=== PATIENT | female | born 1995 | race Caucasian/White ===

== ENCOUNTER 2017-04-09 10:14 | Emergency (ER) | payer OTHER ==
[2017-04-09] MEDS: NORCO, ANEXSIA 5/325MG TABLET (HYDROcodone/ACETAMINOPHEN) PO (10:30)
== END 2017-04-09 12:11 | disposition home or self-care (01) ==
LOC: M ED 10:14
DX: S92.902A Unspecified fracture of left foot, initial encounter for closed fracture (principal); X50.0XXA Overexertion from strenuous movement or load, initial encounter; Y92.018 Other place in single-family (private) house as the place of occurrence of the external cause; E66.9 Obesity, unspecified; F17.210 Nicotine dependence, cigarettes, uncomplicated; F12.20 Cannabis dependence, uncomplicated
CPT/HCPCS: 73630

== ENCOUNTER → 2017-04-25 | Outpatient (CLI) | payer OTHER | LOC: M RAD 13:31 | DX: S92.315A Nondisplaced fracture of first metatarsal bone, left foot, initial encounter for closed fracture (principal); S92.325A Nondisplaced fracture of second metatarsal bone, left foot, initial encounter for closed fracture; X58.XXXA Exposure to other specified factors, initial encounter; Y92.89 Other specified places as the place of occurrence of the external cause; Y93.89 Activity, other specified; Y99.8 Other external cause status | CPT/HCPCS: 73700 ==

== ENCOUNTER 2017-05-08 12:40 | Day surgery (SDC) | payer OTHER ==
[2017-05-08] MEDS ORDERED: ROPIvacaine 0.5% 30 ML INJECTION (J2795 PER 1MG) (12:41)
[2017-05-08] MEDS ORDERED: dexameTHASONE 10 MG/1 ML VIAL PRES.FREE (J1100) (12:41)
[2017-05-08] MEDS ORDERED: LR 1,000 ML IV (13:00)
[2017-05-08] MEDS ORDERED: ROCURONIUM BROMIDE 50 MG/5 ML VIAL As Ordered ×2 (13:39→14:41)
[2017-05-08] MEDS ORDERED: ONDANSETRON 4MG/2ML VIAL (J2405) As Ordered ×3 (13:39→20:42)
[2017-05-08] MEDS ORDERED: LIDOCAINE 2% INJ 100 MG/5 ML SDV (FOR ANES.) As Ordered ×2 (13:39→14:18)
[2017-05-08] MEDS ORDERED: dexameTHASONE 4 MG/ML 1ML VIAL (J1100) As Ordered (13:39)
[2017-05-08] MEDS ORDERED: fentaNYL 250 MCG/5 ML INJECTION (J3010) As Ordered (13:39)
[2017-05-08] MEDS ORDERED: PROPOFOL 200 MG/20 ML VIAL As Ordered ×2 (13:39→14:18)
[2017-05-08] MEDS ORDERED: MIDAZOLAM INJ 2 MG/2 ML VIAL (J2250) As Ordered ×2 (13:40→14:56)
[2017-05-08] MEDS ORDERED: fentaNYL 100 MCG/2 ML INJECTION (J3010) As Ordered ×2 (14:18→14:56)
[2017-05-08 14:51] LABS: CONTROL LINE UCG INT CTR LINE PRESENT; URINE PREG TEST NEGATIVE (NEGATIVE)
[2017-05-08] MEDS: fentaNYL 100 MCG/2 ML INJECTION (J3010) IV (15:24)
[2017-05-08] MEDS: MIDAZOLAM INJ 2 MG/2 ML VIAL (J2250) IV (15:24)
[2017-05-08] MEDS: CEFAZOLIN SOD 1 GM in APPROPRIATE DILUENT 1 EA IV (17:09)
[2017-05-08] MEDS ORDERED: HYDROmorphone HCL 2 MG/ML 1ML VIAL (J1170) As Ordered (17:58)
[2017-05-08] MEDS ORDERED: LABETALOL HCL 100 MG/20 ML VIAL As Ordered (18:25)
[2017-05-08] MEDS ORDERED: DESFLURANE 240 ML INHALANT As Ordered (18:43)
[2017-05-08] MEDS ORDERED: hydrALAZINE INJ 20 MG/ML VIAL As Ordered (18:44)
[2017-05-08] MEDS ORDERED: KETOROLAC 60 MG/2 ML VIAL (J1885) As Ordered (19:33)
[2017-05-08] MEDS ORDERED: ceFAZolin 1GM INJ (J0690 PER 500MG) As Ordered (20:42)
[2017-05-08] MEDS: ONDANSETRON 4MG/2ML VIAL (J2405) IV (20:50)
[2017-05-08] MEDS ORDERED: PERCOCET 5MG/325MG TAB PO (21:15)
[2017-05-08] MEDS: LR 1,000 ML IV ×2 (21:15)
[2017-05-08] MEDS ORDERED: fentaNYL 100 MCG/2 ML INJECTION (J3010) IV (21:15)
[2017-05-08] MEDS ORDERED: FLEET ENEMA PR (21:30)
[2017-05-08] MEDS ORDERED: MORPHINE 2 MG/ML 1ML SYRINGE (J2270) IV (21:30)
[2017-05-08] MEDS ORDERED: oxyCODONE 5MG TAB PO (21:30)
[2017-05-08] MEDS: ACETAMINOPHEN 500 MG TAB PO (22:00)
[2017-05-08 22:53] LABS: BEDSIDE GLUCOSE 204 MG/DL (70-105)
[2017-05-09] MEDS: oxyCODONE 5MG TAB PO ×3 (00:08→09:36)
[2017-05-09] MEDS: MORPHINE 4 MG/ML 1ML VIAL (J2270) IV ×2 (01:50→05:31)
[2017-05-09] MEDS: ACETAMINOPHEN 500 MG TAB PO (05:24)
[2017-05-09] MEDS: LR 1,000 ML IV (07:15)
[2017-05-09] MEDS: ENOXAPARIN 40 MG/0.4 ML SYRINGE (J1650) SC (08:19)
== END 2017-05-09 11:25 | disposition home or self-care (01) ==
LOC: M SDC 12:40 → M PED 22:09
DX: S93.325A Dislocation of tarsometatarsal joint of left foot, initial encounter (principal); K21.9 Gastro-esophageal reflux disease without esophagitis; R06.83 Snoring; R29.898 Other symptoms and signs involving the musculoskeletal system; E66.9 Obesity, unspecified; Z68.41 Body mass index [BMI] 40.0-44.9, adult; Z72.0 Tobacco use; W19.XXXA Unspecified fall, initial encounter; Y93.89 Activity, other specified; Y92.89 Other specified places as the place of occurrence of the external cause; Y99.8 Other external cause status
CPT/HCPCS: 28615

== ENCOUNTER 2018-06-14 13:38 | Emergency (ER) | payer OTHER ==
[~2018-06-14] VITALS: Ht 167.6 cm; Wt 118.2 kg
[~2018-06-14 13:38] MED LIST: HYDR-3713 PO; OXYC-517 PO
[2018-06-14 16:15] LABS: INFLUENZA A AMPLIFICATION NEGATIVE (NEGATIVE); INFLUENZA B AMPLIFICATION NEGATIVE (NEGATIVE)
[2018-06-14 16:24] VITALS: BP 126/80
[2018-06-14] MEDS ORDERED: FLON1SPR NARES (16:44)
[2018-06-14] MEDS ORDERED: LIDO1SOL7 PO (16:44)
== END 2018-06-14 16:58 | disposition home or self-care (01) ==
LOC: M ED 13:38
DX: J02.8 Acute pharyngitis due to other specified organisms (principal); R51 Headache

== ENCOUNTER 2018-08-11 21:13 | Emergency (ER) | payer MEDICAID, OTHER, SELFPAY ==
[~2018-08-11] VITALS: Ht 167.6 cm; Wt 120.0 kg
[~2018-08-11 21:13] MED LIST changes: +FLON1SPR NARES; +LIDO1SOL8 PO
[2018-08-11] MEDS ORDERED: ACETAMINOPHEN TAB 650MG DOSE (2X325MG) PO ONE (22:30)
[2018-08-11 22:37] LABS: BASO # 0.1 10^3/uL (0.0-0.2); BASO % 0.6 % (0.0-1.0); EOS # 0.2 10^3/uL (0.0-0.50); EOS % 2.3 % (0.0-3.0); HEMOGLOBIN 14.3 g/dl (12.0-15.5); LYMPH # 2.7 10^3/uL (1.5-6.5); LYMPH % 30.4 % (24.0-44.0); MEAN CORPUSCULAR HEMOGLOBIN 28.6 pg (27.0-33.0); MEAN CORPUSCULAR HGB CONC 32.5 g/dl (32.0-36.5); MONO # 0.6 10^3/uL (0.0-0.8); MONO % 6.8 % (0.0-5.0); NEUTROPHILS # 5.4 10^3/uL (1.8-7.7); NEUTROPHILS % 59.6 % (36.0-66.0); PLATELET COUNT, AUTOMATED 362 10^3/uL (150-450)
--- NOTE | 2018-08-11 23:37 | REPVR ---
EXAM: US , Transvaginal EXAM DATE/TIME: 08/11/2018 10:33 PM CLINICAL HISTORY: 22 years old, female; complicated by abdominal or pelvic pain; Lower; First trimester; Gestational age or lmp: 06/06/18; ; Additional info: Vaginal bleeding TECHNIQUE: Imaging protocol: Real-time transvaginal obstetrical ultrasound of the maternal pelvis and a first trimester with image documentation. Transvaginal imaging was used for better evaluation of the fetus and adnexa. COMPARISON: No relevant prior studies available. FINDINGS: GESTATION: Gestation: Small gestational sac demonstrated within the uterine fundus with an average sac diameter of 6.1 mm. No pole demonstrated. No yolk sac demonstrated. Heart rate: No cardiac activity. BIOMETRY: Estimated gestational age: Gestational age based on sac size is 5 weeks 3 days. Gestational age based on LMP of 06/06/2018 is 9 weeks 3 days. MATERNAL: Uterus: Uterus measures 7.7 x 5.1 x 4.8 cm Right adnexa: Right ovary not visualized due to overlying bowel gas. Left adnexa: Left ovary measures 4.2 x 2.8 x 3.5 cm. Unilocular cyst in the left ovary measures 3 x 2.5 x 2.7 cm. No solid components. Intraperitoneal: Free fluid in the cul-de-sac demonstrated. IMPRESSION: Single sac in the uterus likely representing a gestational sac however in the absence of a pole, yolk sac or cardiac activity ectopic is not excluded at this time. Follow up ultrasound and beta hCG levels recommended to document the presence of a pole and cardiac activity in order to exclude ectopic or early failure. Electronically signed by: Atilio Reddy On 08/11/2018 23:37:08 PM
[2018-08-11 23:41] VITALS: BP 151/70
== END 2018-08-11 23:43 | disposition home or self-care (01) ==
LOC: M ED 21:13
DX: O20.0 Threatened abortion (principal); O99.331 Smoking (tobacco) complicating pregnancy, first trimester; F17.210 Nicotine dependence, cigarettes, uncomplicated; Z3A.01 Less than 8 weeks gestation of pregnancy

== ENCOUNTER → 2018-08-14 | Outpatient (CLI) | payer MEDICAID, SELFPAY | LOC: M LAB 11:55 | PROVIDERS: ATTEND Nurse Practitioner Family | DX: R71.8 Other abnormality of red blood cells (principal) ==

== ENCOUNTER → 2018-08-16 | Outpatient (CLI) | payer OTHER, SELFPAY ==
[2018-08-16 17:27] LABS: BASO # 0.1 10^3/uL (0.0-0.2); BASO % 0.7 % (0.0-1.0); EOS # 0.2 10^3/uL (0.0-0.50); EOS % 2.1 % (0.0-3.0); HEMATOCRIT 40.7 % (36.0-47.0); HEMOGLOBIN 13.3 g/dl (12.0-15.5); LYMPH # 2.1 10^3/uL (1.5-6.5); LYMPH % 25.4 % (24.0-44.0); MEAN CORPUSCULAR HEMOGLOBIN 29.2 pg (27.0-33.0); MEAN CORPUSCULAR HGB CONC 32.7 g/dl (32.0-36.5); MEAN CORPUSCULAR VOLUME 89.3 fl (80.0-96.0); MONO # 0.6 10^3/uL (0.0-0.8); MONO % 6.8 % (0.0-5.0); NEUTROPHILS # 5.3 10^3/uL (1.8-7.7); NEUTROPHILS % 64.6 % (36.0-66.0); PLATELET COUNT, AUTOMATED 307 10^3/uL (150-450); RED BLOOD COUNT 4.56 10^6/uL (4.00-5.40); WHITE BLOOD COUNT 8.2 10^3/uL (4.0-10.0)
[2018-08-16 20:45] LABS: CHLAMYDIA DNA AMPLIFICATION NEGATIVE (NEGATIVE); GC DNA AMPLIFICATION NEGATIVE (NEGATIVE)
[2018-08-17 10:50] LABS: HEPATITIS C VIRUS ABY INDEX 0.1 INDEX (<0.8); HIV 1&2 SCREEN CENTAUR NEGATIVE (NEGATIVE); RUBELLA IgG QUALITATIVE EQUIVOCAL (IMMUNE)
== END ==
LOC: M LAB 16:10
PROVIDERS: ATTEND Obstetrics & Gynecology
DX: Z34.00 Encounter for supervision of normal first pregnancy, unspecified trimester (principal); Z3A.01 Less than 8 weeks gestation of pregnancy; Z36.89 Encounter for other specified antenatal screening

== ENCOUNTER 2018-09-26 06:04 | Emergency (ER) | payer OTHER ==
[~2018-09-26] VITALS: Ht 167.6 cm; Wt 122.3 kg
[2018-09-26] MEDS ORDERED: PRENTAB53 PO (06:15)
[2018-09-26] MEDS ORDERED: KEFL500C17 PO (07:40)
[2018-09-26] MEDS ORDERED: CEPHALEXIN 500 MG CAP PO ONE (07:45)
[2018-09-26 08:45] VITALS: BP 113/60
== END 2018-09-26 08:47 | disposition home or self-care (01) ==
LOC: M ED 06:04
DX: O23.10 Infections of bladder in pregnancy, unspecified trimester (principal); Z3A.11 11 weeks gestation of pregnancy; O99.331 Smoking (tobacco) complicating pregnancy, first trimester; F17.210 Nicotine dependence, cigarettes, uncomplicated; Z87.440 Personal history of urinary (tract) infections; Z87.42 Personal history of other diseases of the female genital tract

== ENCOUNTER → 2018-11-01 | Outpatient (CLI) | payer OTHER ==
[~2018-11-01] MED LIST changes: +KEFL500C17 PO; +PRENTAB53 PO
== END ==
LOC: M WUC 17:09
PROVIDERS: ATTEND Advanced Practice Midwife
DX: Z36.89 Encounter for other specified antenatal screening (principal)

== ENCOUNTER → 2018-11-15 | Outpatient (CLI) | payer OTHER ==
[~2018-11-15] MED LIST changes: +AMOX875T PO; +COMPPAK; +HM S0.65 NARES
--- NOTE | 2018-11-15 15:38 | REP ---
Obstetric sonography: History: Supervision of , for anatomy. Findings: Scanning through the gravid uterus demonstrates a viable single intrauterine gestation in a cephalic lie. motion is observed and heart rate is recorded at 147 beats per minute. A posterior grade 0 placenta is seen without evidence of previa. Amniotic fluid is subjectively normal. Closed cervical length is measured at 3.5 cm, viewed transabdominally. No extrauterine abnormalities observed. There has been appropriate interval growth. No abnormality is seen. The following anatomic structures are less than optimally seen due to position: Cerebellum and posterior fossa, face and profile, four-chamber heart, spine. The following anatomic structures are identified and felt to be unremarkable: cranium, choroid plexus, cavum, lungs, left and right ventricular outflow tract views, diaphragm, left-sided stomach, abdominal wall cord insertion, three-vessel cord, kidneys and bladder, upper and lower extremities. Biometry chart: BPD 4.5 cm = 19 weeks 4 days HC 16.4 cm = 19 weeks 1 day AC 13.9 cm = 19 weeks 2 days FL 3.0 cm = 19 weeks 1 day HL 2.9 cm = 19 weeks 4 days HC/AC ratio normal 1.18. Cephalic index normal 0.77. Estimated weight 282 grams, 0 pounds 9 ounces, 56th percentile for 19 weeks 0 days. Impression: Viable single intrauterine gestation at 19 weeks days by today's composite sonographic criteria. MARIANN by today's sonography April 08, 2019. anatomic survey less than complete regarding cerebellum, face and profile, and four-chamber heart and spine views. Electronically Signed by Fady Grissom MD 11/15/2018 04:51 P
== END ==
LOC: M RAD 11:36
PROVIDERS: ATTEND Advanced Practice Midwife
DX: O99.212 Obesity complicating pregnancy, second trimester (principal); Z3A.19 19 weeks gestation of pregnancy

== ENCOUNTER 2018-11-26 11:48 | Emergency (ER) | payer OTHER ==
[~2018-11-26] VITALS: Ht 167.6 cm; Wt 126.9 kg
[~2018-11-26 11:48] MED LIST changes: -AMOX875T PO; -COMPPAK; -HM S0.65 NARES
[2018-11-26 11:49] VITALS: BP 158/85
[2018-11-26] MEDS ORDERED: COMPPAK (11:56)
[2018-11-26] MEDS ORDERED: AMOX875T PO (13:04)
[2018-11-26] MEDS ORDERED: HM S0.65 NARES (13:04)
== END 2018-11-26 13:13 | disposition home or self-care (01) ==
LOC: M ED 11:48
DX: J31.0 Chronic rhinitis (principal)

== ENCOUNTER → 2018-12-12 | Outpatient (CLI) | payer OTHER ==
[~2018-12-12] MED LIST changes: +AMOX875T PO; +COMPPAK; +HM S0.65 NARES
--- NOTE | 2018-12-13 03:00 | REP ---
Clinical: Anatomical evaluation. Comparison: 11/15/2018 . Findings: Examination demonstrates a single live intrauterine in cephalic presentation. motion is identified by technologist. Placenta is noted posterior and grade zero without evidence for placenta previa or abruption. Amniotic fluid volume is normal. Cervix measures 3.5 cm in length and appears closed. No evidence for nuchal cord. Gestational age by LMP 22 weeks 6 days with MARIANN 04/11/2019 . Gestational age by current measurements 22 weeks 3 days with MARIANN 04/14/2019 . FHR equals 147 beats per minute. Estimated weight 525 grams ( 39th percentile). Anatomical assessment demonstrates normal structures including cranium, choroid plexus, cavum, cerebellum/posterior fossa, facial features, lungs, four-chamber heart/right ventricular outflow tract, diaphragm, stomach, cord insertion/three-vessel cord, kidneys/bladder, and spine. Impression: Single live intrauterine in cephalic presentation demonstrating appropriate interval growth. In conjunction with prior examination anatomical assessment is complete and normal. Electronically Signed by Gabriel Burch MD 12/13/2018 02:51 A
== END ==
LOC: M RAD 11:38
PROVIDERS: ATTEND Advanced Practice Midwife
DX: O99.212 Obesity complicating pregnancy, second trimester (principal); E66.9 Obesity, unspecified; Z3A.22 22 weeks gestation of pregnancy

== ENCOUNTER → 2019-01-15 | Outpatient (CLI) | payer OTHER ==
[2019-01-15 15:56] LABS: BASO # 0.1 10^3/uL (0.0-0.2); BASO % 0.5 % (0.0-1.0); EOS # 0.2 10^3/uL (0.0-0.5); EOS % 1.7 % (0.0-3.0); HEMOGLOBIN 11.6 g/dl (12.0-15.5); LYMPH # 1.5 10^3/uL (1.5-5.0); LYMPH % 13.9 % (24.0-44.0); MEAN CORPUSCULAR HEMOGLOBIN 29.7 pg (27.0-33.0); MEAN CORPUSCULAR HGB CONC 33.1 g/dl (32.0-36.5); MEAN CORPUSCULAR VOLUME 89.5 fl (80.0-96.0); MONO # 0.6 10^3/uL (0.0-0.8); MONO % 5.5 % (0.0-5.0); NEUTROPHILS # 8.3 10^3/uL (1.5-8.5); NEUTROPHILS % 77.9 % (36.0-66.0); PLATELET COUNT, AUTOMATED 313 10^3/uL (150-450); RED BLOOD COUNT 3.91 10^6/uL (4.00-5.40); WHITE BLOOD COUNT 10.6 10^3/uL (4.0-10.0)
== END ==
LOC: M LAB 14:18
PROVIDERS: ATTEND Advanced Practice Midwife
DX: O99.212 Obesity complicating pregnancy, second trimester (principal); Z3A.00 Weeks of gestation of pregnancy not specified

== ENCOUNTER 2019-03-20 21:01 | Outpatient (CLI) | payer OTHER ==
[~2019-03-20] VITALS: Ht 167.6 cm; Wt 136.5 kg
[2019-03-20 21:25] VITALS: BP 127/71
== END 2019-03-20 23:10 | disposition home or self-care (01) ==
LOC: M LDO 21:01
PROVIDERS: ATTEND Obstetrics & Gynecology
DX: O99.89 Other specified diseases and conditions complicating pregnancy, childbirth and the puerperium (principal); Z3A.37 37 weeks gestation of pregnancy; W19.XXXA Unspecified fall, initial encounter

== ENCOUNTER → 2019-03-25 | Outpatient (REF) | payer OTHER | LOC: M SFHCWAGY 17:20 | PROVIDERS: ATTEND Obstetrics & Gynecology | DX: Z36.85 Encounter for antenatal screening for Streptococcus B (principal) ==

== ENCOUNTER 2019-03-28 18:33 | Inpatient (IN) | payer OTHER ==
[~2019-03-28] VITALS: Ht 167.6 cm; Wt 138.6 kg
[2019-03-28] VITALS (8 sets, daily range): BP systolic 115–132; BP diastolic 55–92
[2019-03-28] MEDS ORDERED: LR 1,000 ML IV SCH (19:41)
[2019-03-28] MEDS ORDERED: OXYTOCIN DRIP 30 UNITS in IV 1 EA IV SCH (19:45)
--- NOTE | 2019-03-28 21:26 | HPE ---
DATE OF ADMISSION: 03/28/2019 HISTORY: A 23-year-old 1, para 0 female at 38-0/7 weeks gestation by 9-week ultrasound, estimated date of confinement (EDC) 04/11/2019, presents with gush of fluid per vagina at 5:45 p.m. on the day of admission. She continued to leak. She denies contractions. There is good movement. There is no bleeding. COURSE: The patient initiated care at 6 weeks gestation on 08/16/2018. Her first trimester blood pressure was 122/76. She had no complications. Weight at the end of the was approximately 300 pounds. MEDICAL HISTORY: Mild asthma. SURGICAL HISTORY: May 2018 - foot surgery. ALLERGIES: None. SOCIAL HISTORY: The father of the baby is involved. The patient lives in [place]. She smokes 6-7 cigarettes per day. Denies alcohol or drug use. FAMILY HISTORY: Noncontributory. PHYSICAL EXAMINATION: Blood pressure 115/55, pulse 112, afebrile, no apparent distress. Head and Neck Exam: Normal. Lungs: Clear. Heart: Regular rate and rhythm. Abdomen: Nontender, gravid. heart tones: Category 1. Contractions: Irregular. Sterile Speculum Exam: Grossly ruptured, clear fluid. Positive fern, positive Nitrazine, positive pool. Fluid is clear. Sterile Vaginal Exam: 2 cm, 70%, -2, posterior, soft, vertex. Extremities: Nontender. LABORATORY: Blood type A positive, Rubella equivocal, diabetes 127, GBS negative. ASSESSMENT: A 23-year-old 1 at 38-0/7 weeks gestation with spontaneous rupture of membranes at 38 weeks. PLAN: The patient is admitted on 03/28/2019. Patient may require Pitocin augmentation.
[2019-03-28 21:57] LABS: HEMOGLOBIN 12.2 g/dl (12.0-15.5); MEAN CORPUSCULAR HEMOGLOBIN 27.4 pg (27.0-33.0); MEAN CORPUSCULAR HGB CONC 31.3 g/dl (32.0-36.5); MEAN CORPUSCULAR VOLUME 87.6 fl (80.0-96.0); PLATELET COUNT, AUTOMATED 332 10^3/uL (150-450); RED BLOOD COUNT 4.45 10^6/uL (4.00-5.40); WHITE BLOOD COUNT 10.6 10^3/uL (4.0-10.0)
[2019-03-29] VITALS (38 sets, daily range): BP systolic 105–176; BP diastolic 51–102
[2019-03-29] MEDS ORDERED: PROMETHAZINE INJ 25 MG/ML VIAL (J2550) IV ONE (04:45)
[2019-03-29] MEDS ORDERED: BUTORPHANOL 2 MG/ML INJ (J0595) IV ONE (04:45)
[2019-03-29] MEDS ORDERED: FENTANYL 2MCG/ML ROPIVACAINE 0.2% IN 0.9% NACL 100ML IVBAG As Ordered ONE (07:37)
[2019-03-29] MEDS: PRENATAL VITAMINS CHEWABLE TABLET PO SCH (09:00)
[2019-03-29] MEDS ORDERED: ePHEDrine SULFATE 25 MG/5 ML(5MG/ML) SYRINGE IV PRN (09:30)
[2019-03-29] MEDS ORDERED: FENTANYL/ROPIVACAINE/NACL BAG 100 ML EPIDURAL SCH (09:30)
[2019-03-29] MEDS ORDERED: NALOXONE INJ 0.4 MG/1 ML VIAL (J2310) IV PRN (09:30)
[2019-03-29] MEDS ORDERED: diphenhydrAMINE INJ 50MG/ML VIAL (J1200) IV PRN (09:30)
[2019-03-29] MEDS ORDERED: ONDANSETRON 4MG/2ML VIAL (J2405) IV PRN ×2 (09:30→11:30)
[2019-03-29] MEDS ORDERED: LACTATED RINGER'S 1000 ML IV PRN (09:30)
[2019-03-29] MEDS ORDERED: EPIDURAL COMMENT XX SCH (09:30)
[2019-03-29] MEDS ORDERED: EPIDURAL/PCA KEYS XX PRN (09:30)
[2019-03-29] MEDS ORDERED: REFRIGERATOR IV KEYS XX PRN (09:30)
[2019-03-29] MEDS ORDERED: LIDOCAINE 1% MDV 20ML VIAL As Ordered ONE ×2 (10:50→10:52)
[2019-03-29] MEDS ORDERED: OXYTOCIN DRIP 30 UNITS in IV 1 EA IV SCH (11:16)
[2019-03-29] MEDS ORDERED: MEASLES,MUMPS,RUBELLA VACCINE INJ (MMR-II) (90707) SC SCH (11:30)
[2019-03-29] MEDS ORDERED: ACETAMINOPHEN 500 MG TAB PO PRN (11:30)
[2019-03-29] MEDS ORDERED: DOCUSATE SODIUM 100 MG CAP PO PRN (11:30)
[2019-03-29] MEDS ORDERED: RHOGAM 300 MCG (1500 IU) INJ (J2790) IM SCH (11:30)
[2019-03-29] MEDS ORDERED: IBUPROFEN 600 MG TAB PO PRN (11:30)
[2019-03-29] MEDS ORDERED: ACETAMINOPHEN TAB 650MG DOSE (2X325MG) PO PRN (11:30)
[2019-03-29] MEDS ORDERED: METHYLERGONOVINE MALEATE 0.2 MG TAB PO PRN (11:30)
[2019-03-29] MEDS ORDERED: DIBUCAINE 1% OINTMENT 30GM TOP PRN (11:30)
--- NOTE | 2019-03-29 13:44 | DN ---
DATE: 03/29/2019 PREDELIVERY DIAGNOSIS: 38 weeks, spontaneous rupture of membranes, labor. POSTDELIVERY DIAGNOSIS: Delivered. PROCEDURE: Spontaneous vaginal delivery. MANAGER APPOINTMENT: Dr. Mikie Carmona EXTRUSION SUPERVISOR: Madhu Chris DO ANESTHESIA: Epidural. ESTIMATED BLOOD LOSS: 300 mL. FINDINGS: 6 pound 7 ounce female infant, Apgars 8 and 9. DELIVERY SUMMARY: After an approximately 30 minute second stage, the patient had spontaneous delivery of a 6 pound 7 ounce female infant, Apgars 8 and 9, under epidural anesthesia. Nuchal cord times one was reduced manually. The shoulders delivered with ease. The infant was handed to the mother and cried immediately. The cord was doubly clamped and cut. The placenta delivered spontaneously and appeared to be intact. The patient received IV Pitocin immediately after delivery of the placenta. A first degree right sided perineal laceration was repaired with #2-0 chromic in the usual fashion. A periclitoral first degree laceration was repaired under local anesthesia with #3-0 chromic in the usual fashion. Sponge and needle counts were correct.
[2019-03-29] MEDS: IBUPROFEN 800 MG TAB PO PRN (18:13)
[2019-03-30] MEDS: IBUPROFEN 800 MG TAB PO PRN (04:48)
[2019-03-30 06:00] VITALS: BP 122/77
--- NOTE | 2019-03-30 07:23 | IPNPDOC ---
Text Note Date of Service The patient was seen on 03/30/19. NOTE PP #1 Feels well. Adequate pain management. Voiding VSS, afebrile,normotensive Breasts soft, nipples intact Fundus firm, NT, down 1 FB Lochia rubra light without odor PP #1 Routine care, anticipate D/C tomorrow VS,Fishbone, I+O VS, Fishbone, I+O Vital Signs Date Time Temp Pulse Resp B/P (MAP) Pulse Ox O2 Delivery O2 Flow Rate FiO2 03/30/19 06:00 98.8 85 16 122/77 (92) 97 Room Air I&O- Last 24 Hours up to 6 AM 03/30/19 06:00 Output Total 200 ml Balance -200 ml Kerrie Barney CNM Mar 30, 2019 07:23
[2019-03-30] MEDS ORDERED: ADACEL/BOOSTRIX VACCINE (DIPHTH/PERTUSS/ACELL/TETANUS)0.5ML SYR (90715) IM ONE (09:00)
[2019-03-30] MEDS ORDERED: INFLUENZA QUADRIVALENT PF VACCINE 0.5ML SYRINGE (90686) IM ONE (09:00)
[2019-03-30] MEDS: PRENATAL VITAMINS CHEWABLE TABLET PO SCH (10:00)
[2019-03-30 18:00] VITALS: BP 124/76
[2019-03-31] MEDS: IBUPROFEN 800 MG TAB PO PRN (02:16)
[2019-03-31 06:00] VITALS: BP 125/80
[2019-03-31] MEDS: PRENATAL VITAMINS CHEWABLE TABLET PO SCH (08:50)
== END 2019-03-31 10:45 | disposition home or self-care (01) | DRG 560 ==
LOC: M LDO 18:33 → M LDI 19:38 → M OBS 03-29 13:54
PROVIDERS: ADMIT Specialist; ATTEND Specialist
PROC: 10E0XZZ Delivery of Products of Conception, External Approach (ICD-10-PCS; principal; 2019-03-29)
PROC: 0HQ9XZZ Repair Perineum Skin, External Approach (ICD-10-PCS; 2019-03-29)
DX: O99.334 Smoking (tobacco) complicating childbirth (principal); F17.210 Nicotine dependence, cigarettes, uncomplicated; Z3A.38 38 weeks gestation of pregnancy; Z37.0 Single live birth; O69.81X0 Labor and delivery complicated by cord around neck, without compression, not applicable or unspecified; O70.0 First degree perineal laceration during delivery

== ENCOUNTER → 2019-11-12 | Outpatient (REF) | payer OTHER ==
[~2019-11-12] MED LIST changes: -LIDO1SOL8 PO; +LIDO2SOL17 PO
[2019-12-13 14:26] LABS: CHLAMYDIA DNA AMPLIFICATION NEGATIVE (NEGATIVE); GC DNA AMPLIFICATION NEGATIVE (NEGATIVE)
[2019-12-30 21:57] LABS: HEMATOCRIT 36.5 % (36.0-47.0); HEMOGLOBIN 12.1 g/dl (12.0-15.5); MEAN CORPUSCULAR HEMOGLOBIN 29.5 pg (27.0-33.0); MEAN CORPUSCULAR HGB CONC 33.2 g/dl (32.0-36.5); PLATELET COUNT, AUTOMATED 290 10^3/uL (150-450); WHITE BLOOD COUNT 8.8 10^3/uL (4.0-10.0)
[2020-01-06 03:47] LABS: HEPATITIS C VIRUS ABY INDEX 0.3 INDEX (<0.8); HIV 1&2 SCREEN CENTAUR NEGATIVE (NEGATIVE)
== END ==
LOC: M SFHCWAGY 13:14
PROVIDERS: ATTEND Advanced Practice Midwife
DX: Z34.82 Encounter for supervision of other normal pregnancy, second trimester (principal)

== ENCOUNTER → 2019-11-18 | Outpatient (CLI) | payer OTHER ==
--- NOTE | 2019-12-20 13:17 | REP ---
OBSTETRICAL ULTRASOUND: HISTORY: Anatomical evaluation. TECHNIQUE: Transabdominal obstetrical ultrasound with color Doppler evaluation. FINDINGS: Ultrasound examination demonstrates a single live intrauterine in variable presentation. heart rate equals 150 beats per minute. Placenta noted posteriorly, grade 0 and without placenta previa or abruption. The cervix measures 3.3 cm in length and appears closed. BIOMETRY CHART: BPD 42 mm 19 weeks 0 days Head circumference 157 mm 18 weeks 5 days Abdominal circumference 130 mm 18 weeks 5 days Femur length 28 mm 18 weeks 5 days Humeral length 27 mm 18 weeks 5 days Gestational age by current measurements is 18 weeks 6 days. Estimated weight is 251 grams (42nd percentile). Anatomical assessment demonstrates normal cisterna magna, cavum/septum, thalamus, spine, stomach, kidneys/bladder, three vessel cord/cord insertion, extremities and facial features. Limited evaluation of the heart and ventricular outflow tracts noted. IMPRESSION: 1. Single live intrauterine in variable presentation demonstrating appropriate estimated weight. 2. Limited evaluation of the heart/ventricular outflow tracts may warrant re- evaluation and follow up. MTDD
== END ==
LOC: M WHC 09:53
PROVIDERS: ATTEND Advanced Practice Midwife
DX: Z34.92 Encounter for supervision of normal pregnancy, unspecified, second trimester (principal)

== ENCOUNTER → 2020-01-21 | Outpatient (CLI) | payer OTHER ==
[2020-01-21 15:24] LABS: HEMATOCRIT 38.1 % (36.0-47.0); HEMOGLOBIN 12.1 g/dl (12.0-15.5); MEAN CORPUSCULAR HEMOGLOBIN 28.5 pg (27.0-33.0); MEAN CORPUSCULAR HGB CONC 31.8 g/dl (32.0-36.5); MEAN CORPUSCULAR VOLUME 89.9 fl (80.0-96.0); PLATELET COUNT, AUTOMATED 333 10^3/uL (150-450); RED BLOOD COUNT 4.24 10^6/uL (4.00-5.40); WHITE BLOOD COUNT 9.7 10^3/uL (4.0-10.0)
== END ==
LOC: M PLALAB 11:47
PROVIDERS: ATTEND Advanced Practice Midwife
DX: Z34.82 Encounter for supervision of other normal pregnancy, second trimester (principal)

== ENCOUNTER → 2020-01-23 | Outpatient (CLI) | payer OTHER ==
--- NOTE | 2020-01-23 15:14 | REP ---
INDICATION: F/U ANATOMY. COMPARISON: Comparison study November 18, 2019. TECHNIQUE: Transabdominal scanning. FINDINGS: Scanning through the gravid uterus demonstrates a viable single intrauterine gestation in breech lie. motion is observed and heart rate is recorded at 146 beats per minute. A posterior fundal placenta is seen, grade 1, without evidence of placenta previa. Amniotic fluid is subjectively normal. Closed cervical length is measured at 4.5 cm transabdominally. No extrauterine abnormality is observed. The following anatomic structures are identified today and felt to be unremarkable: Four-chamber heart with left and right ventricular outflow tract views. In conjunction with the prior study, anatomic survey is felt to be complete.. Biometry chart: BPD 7.1 cm, 28 weeks 2 days Head circumference 26.1 cm 28 weeks 3 days Abdominal circumference 24.1 cm, 28 weeks 2 days Femur length 5.4 cm, 28 weeks 3 days Humeral length 4.8 cm, 28 weeks 3 days HC/AC ratio normal 1.09 Cephalic index normal 0.75 Estimated weight 1214 g, 2 lb 10 oz, 35th percentile for 28 weeks 3 days IMPRESSION: Viable single intrauterine gestation at 28 weeks 3 days by today's composite sonographic criteria. MARIANN by today's sonography April 13, 2020. No complication identified. <Electronically signed by Jeremi Grissom > 01/23/20 1597
== END ==
LOC: M WHC 12:26
PROVIDERS: ATTEND Advanced Practice Midwife
DX: Z34.82 Encounter for supervision of other normal pregnancy, second trimester (principal); Z3A.28 28 weeks gestation of pregnancy

== ENCOUNTER 2020-02-20 15:40 | Outpatient (CLI) | payer OTHER ==
[~2020-02-20] VITALS: Ht 167.6 cm; Wt 130.5 kg
[2020-02-20 16:05] VITALS: BP 122/79
[2020-02-20] MEDS ORDERED: ACET-897 PO (16:25)
[2020-02-20 17:05] VITALS: BP 130/71
[2020-02-20] MEDS ORDERED: CYCL-707 PO (18:29)
[2020-02-20] MEDS ORDERED: CYCLOBENZAPRINE 10MG TABLET PO ONE (19:00)
== END 2020-02-20 17:45 | disposition home or self-care (01) ==
LOC: M LDO 15:40
PROVIDERS: ATTEND Obstetrics & Gynecology
DX: O26.893 Other specified pregnancy related conditions, third trimester (principal); M54.5 Low back pain; Z3A.32 32 weeks gestation of pregnancy

== ENCOUNTER → 2020-03-17 | Outpatient (REF) | payer OTHER ==
[~2020-03-17] MED LIST changes: +ACET-897 PO; +CYCL-707 PO
== END ==
LOC: M PLALAB 10:25
PROVIDERS: ATTEND Obstetrics & Gynecology
DX: Z3A.35 35 weeks gestation of pregnancy (principal)

== ENCOUNTER 2020-04-11 07:14 | Inpatient (IN) | payer OTHER ==
[2020-04-11] VITALS (34 sets, daily range): BP systolic 104–157; BP diastolic 54–100
[~2020-04-11] VITALS: Ht 167.6 cm; Wt 143.5 kg
--- OUTSIDE RECORDS SUMMARY | 2020-04-11 07:18 | CCD ---
Author Author [facility] Organization [facility] Address Unknown Phone Unavailable Care Team Providers Care Rn Ccu Name Role Phone Jami Rios Unavailable PROBLEMS Type Condition ICD9-CM Code [id number] Code Onset Dates Condition S tatus SNOMED Code Notes Problem Contraception management V25.9 Active 3347505 00 Problem Morbid obesity with BMI of 45.0-49.9, adult 278.01 Active 931226913 Problem Obesity complicating in third trimester O99.21 3 Active Problem Morbid (severe) obesity due to excess calories E66 .01 Active 310474166 Problem Irregular menses 626.4 Active 518859120 Problem Contraceptive education V25.09 Active 15204354 0 Problem Dysmenorrhea 625.3 Active 518329249 Problem Supervision of other normal Z34.80 Ac tive 542942299 ALLERGIES Allergen (clinical drug ingredient) Drug/Non Drug Allergy do cumented on EMR Reaction Allergy Type Onset Date Status Seasonal Unknown Non Drug Allergy Active ENCOUNTERS from 1994 to 2020-02-25 Encounter Location Date Provider Diagnosis [facility] [address] [place] [address] Jan, Jami Rios Obesity complicating in third trimester O99.213 ; Morbid (severe) obesity due to excess calories E66.01 ; 28 weeks gestation of Z3A.28 and Encounter for immunization Z23 IMMUNIZATIONS Vaccine Route Administration Date Status TDAP 0.5mL (Boostrix) IM Intramuscular Jan 28, 2020 Administe red SOCIAL HISTORY Tobacco Use: Social History Observation Description Date Details (start date - stop date) Current Smoker Sex Assigned At : Social History Observation Description Sex Assigned At Female Tobacco Use: Question Answer Notes Are you a: current smoker REASON FOR REFERRAL No Information VITAL SIGNS Weight 280.8 lbs Jan, Weight-kg 127.37 kg Jan, Height 66 in Jan, BMI 45.322 kg/m2 Jan, Blood pressure systolic 120 mm Hg Jan, Blood pressure diastolic 72 mm Hg Jan, MEDICATIONS Medication SIG (Take, Route, Frequency, Duration) Notes Start Da te End Date Status 27-1 MG 1 tablet Orally Once a day Active Flexeril Active PROCEDURES Procedure Date Ordered Result Body Site Immunization: Boostrix 0.5mL IM (TDAP) 2020-01-28 N/A RESULTS No Results REASON FOR VISIT 4WK PN MEDICAL (GENERAL) HISTORY Type Description Date Medical History environmental allergies Medical History morbid obesity Medical History GERD Medical History Rheumatoid arthritis Surgical History T & A 06/2003 Surgical History foot surgery Hospitalization History Childbirth 03/29/2019 Goals Section No Information Health Concerns No Information MEDICAL EQUIPMENT No Information MENTAL STATUS No Information FUNCTIONAL STATUS No Information ASSESSMENTS Encounter Date Diagnosis Assessment Notes Treatment Notes Treatm ent Clinical Notes Jan, Obesity complicating pregnan cy in third trimester (ICD-10 - O99.213) Jan, Morbid (severe) obesity due to excess calories ( ICD-10 - E66.01) Jan, 28 weeks gestation of (ICD-10 - Z3A.28 ) Jan, Encounter for immunization (ICD-10 - Z23) PLAN OF TREATMENT Next Appt Details 4 Weeks Reason:pn Provider Name:Jami Rios, 2020-02 10:40:00 AM, [address] [place], [address], Follow Up:4 Weekspn Insurance Providers Payer Name Payer Address Payer Phone Insured Name Patient Relati onship to Insured Coverage Start Date Coverage End Date [employer] [facility] [place] [address] [facility] [phone] MAGD[place]ENA TOBIN self
--- OUTSIDE RECORDS SUMMARY | 2020-04-11 07:18 | CCD ---
Author Author [facility] Organization [facility] Address Unknown Phone Unavailable Care Team Providers Care Inspector Experimental Assembly Name Role Phone Jami Rios Unavailable PROBLEMS Type Condition ICD9-CM Code [id number] Code Onset Dates Condition S tatus SNOMED Code Notes Problem Contraception management V25.9 Active 6979807 00 Problem Morbid obesity with BMI of 45.0-49.9, adult 278.01 Active 945582409 Problem Irregular menses 626.4 Active 027271438 Problem Morbid (severe) obesity due to excess calories E66 .01 Active 487650115 Problem Pre-existing diabetes mellit us 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, antepartum O24.312 Active Problem Contraceptive education V25.09 Active 05951293 0 Problem Dysmenorrhea 625.3 Active 054321546 Problem Supervision of other normal Z34.80 Ac tive 624186024 Problem Obesity complicating in third trimester O99.21 3 Active ALLERGIES Allergen (clinical drug ingredient) Drug/Non Drug Allergy do cumented on EMR Reaction Allergy Type Onset Date Status Seasonal Unknown Non Drug Allergy Active ENCOUNTERS from 1994 to 2020-03-18 Encounter Location Date Provider Diagnosis [facility] [address] [place] [address] Feb, Jami Rios Obesity complicating in third trimester O99.213 and 35 weeks gestation of Z3A.35 IMMUNIZATIONS Vaccine Route Administration Date Status TDAP 0.5mL (Boostrix) IM Intramuscular Jan 28, 2020 Administe red SOCIAL HISTORY Tobacco Use: Social History Observation Description Date Details (start date - stop date) Current Smoker Sex Assigned At : Social History Observation Description Sex Assigned At Female Tobacco Use: Question Answer Notes Are you a: current smoker REASON FOR REFERRAL No Information VITAL SIGNS Weight 299.8 lbs Feb, Height 66 in Feb, BMI 48.389 kg/m2 Feb, Blood pressure systolic 128 mm Hg Feb, Blood pressure diastolic 80 mm Hg Feb, MEDICATIONS Medication SIG (Take, Route, Frequency, Duration) Notes Start Da te End Date Status 27-1 MG 1 tablet Orally Once a day Active Flexeril Not-Taking PROCEDURES No Information RESULTS No Results REASON FOR VISIT 1WK PN MEDICAL (GENERAL) HISTORY Type Description Date [...] Notes Treatment Notes Treatm ent Clinical Notes Feb, Obesity complicating pregnan cy in third trimester (ICD-10 - O99.213) Feb, 35 weeks gestation of (ICD-10 - Z3A.35 ) PLAN OF TREATMENT Treatment Notes Test Name Order Date GROUP B STREP CULTURE 2020-03-18 Next Appt Details 2 Weeks Reason:PN Provider Name:Jami Rios, 2020-03 10:20:00 AM, [address] [place], [address], Follow Up:2 WeeksPN Insurance Providers Payer Name Payer Address Payer Phone Insured Name Patient Relati onship to Insured Coverage Start Date Coverage End Date [facility] COMMUNITY PLAN [facility] [address] [facility] [phone] MAGDALENA TOBIN self
--- OUTSIDE RECORDS SUMMARY | 2020-04-11 07:18 | CCD ---
Author Author [facility] Organization [facility] Address Unknown Phone Unavailable Care Team Providers Care Balance Staff Inspector Name Role Phone Jami Rios Unavailable PROBLEMS Type Condition ICD9-CM Code [id number] Code Onset Dates Condition S tatus SNOMED Code Notes Problem Contraception management V25.9 Active 3978425 00 Problem Morbid obesity with BMI of 45.0-49.9, adult 278.01 Active 920132910 Problem Irregular menses 626.4 Active 143206323 Problem Morbid (severe) obesity due to excess calories E66 .01 Active 306522163 Problem Pre-existing diabetes mellit us 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, antepartum O24.312 Active Problem Contraceptive education V25.09 Active 76384758 0 Problem Dysmenorrhea 625.3 Active 667347646 Problem Supervision of other normal Z34.80 Ac tive 941459427 Problem Obesity complicating in third trimester O99.21 3 Active ALLERGIES Allergen (clinical drug ingredient) Drug/Non Drug Allergy do cumented on EMR Reaction Allergy Type Onset Date Status Seasonal Unknown Non Drug Allergy Active ENCOUNTERS from 1994 to 2020-03-17 Encounter Location Date Provider Diagnosis [facility] [address] [place] [address] Feb, Jami Rios Obesity complicating in third trimester O99.213 ; Morbid (severe) obesity due to excess calories E66.01 and 34 weeks gestation of Z3A.34 IMMUNIZATIONS Vaccine Route Administration Date Status TDAP 0.5mL (Boostrix) IM Intramuscular Jan 28, 2020 Administe red SOCIAL HISTORY Tobacco Use: Social History Observation Description Date Details (start date - stop date) Current Smoker Sex Assigned At : Social History Observation Description Sex Assigned At Female Tobacco Use: Question Answer Notes Are you a: current smoker REASON FOR REFERRAL No Information VITAL SIGNS Weight 295.2 lbs Feb, Height 66 in Feb, BMI 47.647 kg/m2 Feb, Blood pressure systolic 128 mm Hg Feb, Blood pressure diastolic 78 mm Hg Feb, MEDICATIONS Medication SIG (Take, Route, Frequency, Duration) Notes Start Da te End Date Status 27-1 MG 1 tablet Orally Once a day Active Flexeril Not-Taking PROCEDURES No Information RESULTS No Results REASON FOR VISIT 4WK [...] in third trimester (ICD-10 - O99.213) Feb, Morbid (severe) obesity due to excess calories ( ICD-10 - E66.01) Feb, 34 weeks gestation of (ICD-10 - Z3A.34 ) PLAN OF TREATMENT Next Appt Details 1 Week Reason:PN Provider Name:Jami Rios, 2020-03 10:20:00 AM, [address] [place], [address], Follow Up:1 WeekPN Insurance Providers Payer Name Payer Address Payer Phone Insured Name Patient Relati onship to Insured Coverage Start Date Coverage End Date [facility] COMM[facility]AN [facility] [address] [facility] [phone] MAGDALENA TOBIN self
--- OUTSIDE RECORDS SUMMARY | 2020-04-11 07:18 | CCD ---
Author Author [facility] Organization [facility] Address Unknown Phone Unavailable Care Team Providers Care Dictating Machine Transcriber Name Role Phone YenichazKerrie Unavailable PROBLEMS Type Condition ICD9-CM Code [id number] Code Onset Dates Condition S tatus SNOMED Code Notes Problem Contraception management V25.9 Active 6970113 00 Problem Morbid obesity with BMI of 45.0-49.9, adult 278.01 Active 164739182 Problem Irregular menses 626.4 Active 223793102 Problem Morbid (severe) obesity due to excess calories E66 .01 Active 706944458 Problem Pre-existing diabetes mellit us 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, antepartum O24.312 Active Problem Contraceptive education V25.09 Active 59371871 0 Problem Dysmenorrhea 625.3 Active 743931406 Problem Supervision of other normal Z34.80 Ac tive 809517326 Problem Obesity complicating in third trimester O99.21 3 Active ALLERGIES Allergen (clinical drug ingredient) Drug/Non Drug Allergy do cumented on EMR Reaction Allergy Type Onset Date Status Seasonal Unknown Non Drug Allergy Active ENCOUNTERS from 1994 to 2020-04-04 Encounter Location Date Provider Diagnosis [facility] [address] [place] [address] Mar, Kerrie Barney Decreased m ovement during in third trimester, antepartum O36.8130 ; 37 weeks gestation of Z3A.37 and Obesity complicating in third trimester O99.213 IMMUNIZATIONS Vaccine Route Administration Date Status TDAP 0.5mL (Boostrix) IM Intramuscular Jan 28, 2020 Administe red SOCIAL HISTORY Tobacco Use: Social History Observation Description Date Details (start date - stop date) Current Smoker Sex Assigned At : Social History Observation Description Sex Assigned At Female Tobacco Use: Question Answer Notes Are you a: current smoker REASON FOR REFERRAL No Information VITAL SIGNS Weight 299.6 lbs Mar, Weight-kg 135.9 kg Mar, Height 66 in Mar, BMI 48.357 kg/m2 Mar, Blood pressure systolic 120 mm Hg Mar, Blood pressure diastolic 84 mm Hg Mar, MEDICATIONS Medication SIG (Take, Route, Frequency, Duration) Notes Start Da te End Date Status Flexeril Not-Taking 27-1 MG 1 tablet Orally Once a day Active PROCEDURES from 1994 to 2020-04-04 Procedure Date Ordered Result Body Site non-stress test 2020-03-31 N/A RESULTS No Results REASON FOR VISIT 1WK [...] Notes Treatment Notes Treatm ent Clinical Notes Mar, Decreased movement dur ing in third trimester, antepartum (ICD-10 - O36.8130) Mar, 37 weeks gestation of (ICD-10 - Z3A.37 ) Mar, Obesity complicating pregnan cy in third trimester (ICD-10 - O99.213) PLAN OF TREATMENT Next Appt Details 1 Week Reason:return ob Provider Name:Samra Rashard Edwards, 2020-04-10 0 3:00:00 PM, [address] [place], [address], Follow Up:1 Weekreturn ob Insurance Providers Payer Name Payer Address Payer Phone Insured Name Patient Relati onship to Insured Coverage Start Date Coverage End Date [facility] COMMUN[employer] PLAN [facility] [address] [facility] [phone] MAGDALENA TOBIN self
--- OUTSIDE RECORDS SUMMARY | 2020-04-11 07:18 | CCD ---
Author Author [facility] Organization [facility] Address Unknown Phone Unavailable Care Team Providers Care Rn Assessment Name Role Phone Kerrie Barney Unavailable PROBLEMS Type Condition ICD9-CM Code [id number] Code Onset Dates Condition S tatus SNOMED Code Notes Problem Contraception management V25.9 Active 7653847 00 Problem Morbid obesity with BMI of 45.0-49.9, adult 278.01 Active 531254185 Problem Obesity complicating in third trimester O99.21 3 Active Problem Morbid (severe) obesity due to excess calories E66 .01 Active 958925628 Problem Irregular menses 626.4 Active 687183676 Problem Contraceptive education V25.09 Active 21787691 0 Problem Dysmenorrhea 625.3 Active 180544945 Problem Supervision of other normal Z34.80 Ac tive 013414983 ALLERGIES Allergen (clinical drug ingredient) Drug/Non Drug Allergy do cumented on EMR Reaction Allergy Type Onset Date Status Seasonal Unknown Non Drug Allergy Active ENCOUNTERS from 1994 to 2020-02-28 Encounter Location Date Provider Diagnosis [facility] [address] [place] [address] Feb, Kerrie Ambaralysia Obesity complicat ing in third trimester O99.213 ; 32 weeks gestation of Z3A.32 and Back ache M54.9 IMMUNIZATIONS Vaccine Route Administration Date Status TDAP 0.5mL (Boostrix) IM Intramuscular Jan 28, 2020 Administe red SOCIAL HISTORY Tobacco Use: Social History Observation Description Date Details (start date - stop date) Current Smoker Sex Assigned At : Social History Observation Description Sex Assigned At Female Tobacco Use: Question Answer Notes Are you a: current smoker REASON FOR REFERRAL No Information VITAL SIGNS Weight 284 lbs Feb, Height 66 in Feb, BMI 45.839 kg/m2 Feb, Blood pressure systolic 130 mm Hg Feb, Blood pressure diastolic 76 mm Hg Feb, MEDICATIONS Medication SIG (Take, Route, Frequency, Duration) Notes Start Da te End Date Status 27-1 MG 1 tablet Orally Once a day Active Flexeril Active PROCEDURES No Information RESULTS No Results REASON [...] in third trimester (ICD-10 - O99.213) Feb, 32 weeks gestation of (ICD-10 - Z3A.32 ) Feb, Back ache (ICD-10 - M54.9) PLAN OF TREATMENT Next Appt Details 2 Weeks Reason:return ob Provider Name:Jami Rios, 2020-02 10:40:00 AM, [address] [place], [address], Follow Up:2 Weeksreturn ob Insurance Providers Payer Name Payer Address Payer Phone Insured Name Patient Relati onship to Insured Coverage Start Date Coverage End Date [facility] COMMUNITY PLAN [facility] [address] [facility] [id number] [employer] self
--- OUTSIDE RECORDS SUMMARY | 2020-04-11 07:18 | CCD ---
Author Author [facility] Organization [facility] [employer] [facility] Address Unknown Phone Unavailable Care Team Providers Care Senior Technical Program Manager Name Role Phone Kerrie Barney Unavailable PROBLEMS Type Condition ICD9-CM Code [id number] Code Onset Dates Condition S tatus SNOMED Code Notes Problem Contraception management V25.9 Active 1071495 00 Problem Morbid obesity with BMI of 45.0-49.9, adult 278.01 Active 547107010 Problem Obesity complicating in third trimester O99.21 3 Active Problem Morbid (severe) obesity due to excess calories E66 .01 Active 451301812 Problem Irregular menses 626.4 Active 564402119 Problem Contraceptive education V25.09 Active 77935511 0 Problem Dysmenorrhea 625.3 Active 928203766 Problem Supervision of other normal Z34.80 Ac tive 093322231 ALLERGIES Allergen (clinical drug ingredient) Drug/Non Drug Allergy do cumented on EMR Reaction Allergy Type Onset Date Status Seasonal Unknown Non Drug Allergy Active ENCOUNTERS from 1994 to 2020-02-04 Encounter Location Date Provider Diagnosis [facility] [address] [place] [address] Dec, Kerrie Barney Obesity complicat ing in third trimester O99.213 and 29 weeks gestation of Z3A.29 IMMUNIZATIONS Vaccine Route Administration Date Status TDAP 0.5mL (Boostrix) IM Intramuscular Jan 28, 2020 Administe red SOCIAL HISTORY Tobacco Use: Social History Observation Description Date Details (start date - stop date) Current Smoker Sex Assigned At : Social History Observation Description Sex Assigned At Female Tobacco Use: Question Answer Notes Are you a: current smoker REASON FOR REFERRAL No Information VITAL SIGNS No information MEDICATIONS Medication SIG (Take, Route, Frequency, Duration) Start Date En d Date Status Macrobid 100 MG capsule Orally BID for 7 days 14 Dec, 2019 Not-Taking JJ 3-0.02 MG 1 tablet Orally Once a day at same time each day for 28 day(s) Mar, Not-Taking Zyrtec Allergy 10 mg 1 tab(s) p.o. Once a day for 30 day(s) Not-Taking 27-1 MG 1 tablet Orally Once a day Active Lansoprazole 30 mg 1 tab(s) p.o. Once a day for 30 day(s) Not-Taking PROCEDURES No Information RESULTS No Results REASON FOR VISIT 4 WK PN MEDICAL (GENERAL) HISTORY Type Description Date Medical History environmental allergies Medical History morbid obesity Medical History GERD Medical History Rheumatoid arthritis Surgical History T & A 06/2003 Surgical History foot surgery Hospitalization History Childbirth 03/29/2019 Goals Section No Information Health Concerns No Information MEDICAL EQUIPMENT No Information MENTAL STATUS No Information FUNCTIONAL STATUS No Information ASSESSMENTS Encounter Date Diagnosis Notes Dec, Obesity complicating pregnan cy in third trimester (ICD-10 - O99.213) Dec, 29 weeks gestation of (ICD-10 - Z3A.29) PLAN OF TREATMENT Next Appt Details 2 Weeks Reason: Provider Name:Kerrie Barney 2020-02-25 01:40:00 PM, [address] [place], [address], Insurance Providers Payer Name Payer Address Payer Phone Insured Name Patient Relati onship to Insured Coverage Start Date Coverage End Date [facility]UN[employer] PLAN [facility] [address] [facility] [phone] [employer] self
--- OUTSIDE RECORDS SUMMARY | 2020-04-11 07:18 | CCD ---
Author Author [facility] Organization [facility] Address Unknown Phone Unavailable Care Team Providers Care Floor Clerk Name Role Phone Samra Edwards Unavailable PROBLEMS Type Condition ICD9-CM Code [id number] Code Onset Dates Condition S tatus SNOMED Code Notes Problem Contraception management V25.9 Active 3398551 00 Problem Morbid obesity with BMI of 45.0-49.9, adult 278.01 Active 030997790 Problem Obesity complicating in third trimester O99.21 3 Active Problem Morbid (severe) obesity due to excess calories E66 .01 Active 275806208 Problem Irregular menses 626.4 Active 870276844 Problem Contraceptive education V25.09 Active 84763251 0 Problem Dysmenorrhea 625.3 Active 957620543 Problem Supervision of other normal Z34.80 Ac tive 972771363 ALLERGIES Allergen (clinical drug ingredient) Drug/Non Drug Allergy do cumented on EMR Reaction Allergy Type Onset Date Status Seasonal Unknown Non Drug Allergy Active ENCOUNTERS from 1994 to 2020-02-04 Encounter Location Date Provider Diagnosis [facility] [address] [place] [address] Sep, Samra Edwards High risk due to smoking in first trimester O99.331 ; Nicotine dependence, cigarettes, uncomplicated F17.210 and 13 weeks gestation of Z3A.13 IMMUNIZATIONS Vaccine Route Administration Date Status TDAP 0.5mL (Boostrix) IM Intramuscular Jan 28, 2020 Administe red SOCIAL HISTORY Tobacco Use: Social History Observation Description Date Details (start date - stop date) Current Smoker Sex Assigned At : Social History Observation Description Sex Assigned At Female Tobacco Use: Question Answer Notes Are you a: current smoker REASON FOR REFERRAL No Information VITAL SIGNS Weight 275 lbs Sep, Height 66 in Sep, BMI 44.386 kg/m2 Sep, Blood pressure systolic 128 mm Hg Sep, Blood pressure diastolic 70 mm Hg Sep, MEDICATIONS Medication SIG (Take, Route, Frequency, Duration) Start Date En d Date Status Macrobid 100 MG capsule Orally BID for 7 days Dec, Not-Taking JJ 3-0.02 MG 1 tablet Orally Once a day at same time each day for 28 day(s) Mar, Not-Taking Zyrtec Allergy 10 mg 1 tab(s) p.o. Once a day for 30 day(s) Not-Taking 27-1 MG 1 tablet Orally Once a day Active Lansoprazole 30 mg 1 tab(s) p.o. Once a day for 30 day(s) Not-Taking PROCEDURES No Information RESULTS Component Value Reference Range WWBC OBS COMPLETE US Reviewed date:01/01/2020 14:42:26 Interpretation: Performing Lab:[facility],[address]], ,[place] [id number] REASON FOR VISIT 4WK PN MEDICAL (GENERAL) [...] No Information ASSESSMENTS Encounter Date Diagnosis Notes Sep, High risk due to s moking in first trimester (ICD-10 - O99.331) Sep, Nicotine dependence, cigarettes, uncompl icated (ICD-10 - F17.210) Sep, 13 weeks gestation of (ICD-10 - Z3A.13) PLAN OF TREATMENT Next Appt Details 4 Weeks Reason: Provider Name:Kerrie D Valtormariaelenachaz, 2020-02-25 01:40:00 PM, [address] [place], [address], Insurance Providers Payer Name Payer Address Payer Phone Insured Name Patient Relati onship to Insured Coverage Start Date Coverage End Date [facility] COMMUNITY PLAN [facility] [address] [facility] [phone] [employer] self
--- OUTSIDE RECORDS SUMMARY | 2020-04-11 07:19 | CCD ---
Author Author [facility] Address Unknown Phone Unavailable Support Name Relationship Address Phone MARSHAL Next Of Kin [address] [place] [address] WATNTIMES Next Of Kin [address] [place] [address] UE Next Of Kin Unknown Unavailable Rashard TOBIN Next Of Kin [address] [facility] [address] [place] [address] BLAINE TOBIN ECON [address] [place] [address] Unavailable Re-disclosure Warning The records that you are about to access may contain information from federally-assisted alcohol or drug abuse programs. If such information is present, then the following federally mandated warning applies: This information has been disclosed to you from records protected by federal confidentiality rules (42 CFR part 2). The federal rules prohibit you from making any further disclosure of this information unless further disclosure is expressly permitted by the written consent of the person to whom it pertains or as otherwise permitted by 42 CFR part 2. A general authorization for the release of medical or other information is NOT sufficient for this purpose. The Federal rules restrict any use of the information to criminally investigate or prosecute any alcohol or drug abuse patient.The records that you are about to access may contain highly sensitive health information, the redisclosure of which is protected by Article 27-F of the [facility] Public Health law. If you continue you may have access to information: Regarding HIV / AIDS; Provided by facilities licensed or operated by the [facility] Office of Mental Health; or Provided by the [facility] Office for People With Developmental Disabilities. If such information is present, then the following [facility] mandated warning applies: This information has been disclosed to you from confidential records which are protected by state law. State law prohibits you from making any further disclosure of this information without the specific written consent of the person to whom it pertains, or as otherwise permitted by law. Any unauthorized further disclosure in violation of state law may result in a fine or shelter sentence or both. A general authorization for the release of medical or other information is NOT sufficient authorization for further disc losure. Allergies and Adverse Reactions Type Description Substance Reaction Status Data Source(s ) Seasonal Seasonal Seasonal Unknown Active eCW1 ([facility]) Seasonal Seasonal Seasonal Unknown Active eCW1 ([facility]) Family History Family Member Name Family Member Gender Family Member Status Date o f Status Description Data Source(s) Unknown Male Problem MEDENT ([facility]) Unknown Unknown Encounters Encounter Providers Location Date Indications Data Source(s ) ( ESTOB) [facility] Est OB [address] [place] [address] 03/31/2020 12:00:00 AM EST eCW1 ([facility]) ( ESTOB) enter Est OB [address] [place] [address] 03/17/2020 12:00:00 AM EST eCW1 ([facility]) ( ESTOB) enter Est OB [address] [place] [address] 03/10/2020 12:00:00 AM EST eCW1 ([facility]) ( ESTOB) enter Est OB [address] [place] [address] 02/25/2020 12:00:00 AM EST eCW1 ([facility]) ( ESTOB) enter Est OB [address] [place] [address] 01/28/2020 12:00:00 AM EST eCW1 ([facility]) ( ESTOB) enter Est OB [address] [place] [address] 01/09/2020 12:00:00 AM EDT eCW1 ([facility]) Unknown [address] [facility] [address] 01/08/2020 12:00:00 AM EDT eCW1 ([facility]) ( ESTOB) [facility] Est OB [address] [place] [address] 10/15/2019 12:00:00 AM EDT eCW1 [facility] ( ESTOB) [facility] [address] [place] [address] 09/16/2019 12:00:00 AM EDT eCW1 ([facility]) [address] [address] 06/18/2019 12:00:00 AM EDT [facility]CW1 ([facility] [place]) [address] [address] 05/15/2019 12:00:00 AM EST eCW1 ([facility]) [address] [address] 04/24/2019 12:00:00 AM EST [facility]) [address] [address] 04/03/2019 12:00:00 AM EST eCW1 ([facility]) [address] [address] 04/02/2019 12:00:00 AM EST eCW1 ([facility]) [address] [address] 03/25/2019 12:00:00 AM EST [facility] [address] [address] 02/20/2019 12:00:00 AM EST eCW1 [facility]) [address] [address] 02/20/2019 12:00:00 AM EST [facility] Immunizations Vaccine Date Status Description Data Source(s) Tdap 01/28/2020 03:55:00 PM EST completed e CW1 ([facility]) Tdap 01/28/2020 03:55:00 PM EST completed e CW1 ([facility]) Tdap 01/28/2020 03:55:00 PM EST completed e CW1 ([facility]) Tdap 01/28/2020 03:55:00 PM EST completed e CW1 ([facility]) Tdap 01/28/2020 03:55:00 PM EST completed e CW1 ([facility]) Tdap 01/28/2020 03:55:00 PM EST completed e CW1 ([facility]) Tdap 01/28/2020 03:55:00 PM EST completed e CW1 ([facility]) Medications Medication Brand Name Start Date Product Form Dose Route Admi nistrative Instructions Pharmacy Instructions Status Indications Reaction Description Data Source(s) Cyclobenzaprine hydrochloride 10 MG Oral Tablet CYCLOBENZAPR INE HCL 02/21/2020 12:00:00 AM EST tablet 20 TAKE ONE TABLET BY MOUTH THREE TIMES A DAY NEEDED FOR MUSCLE SPASMS TAKE ONE TABLET BY MOUTH THREE TIMES A D AY NEEDED FOR MUSCLE SPASMS SOLD: 02/21/2020 Pablo galvan NITROFURANTOIN, MACROCRYSTALS 25 MG / Ni trofurantoin, Monohydrate 75 MG Oral Capsule [Macrobid] Macrobid 100 MG Macrobid 100 MG 01/08/2020 12:00:00 AM EDT suspended Macrobid 100 MG eCW1 ( [facility]) NITROFURANTOIN, MACROCRYSTALS 25 MG / Ni trofurantoin, Monohydrate 75 MG Oral Capsule [Macrobid] Macrobid 100 MG Macrobid 100 MG 01/08/2020 12:00:00 AM EDT active Macrobid 100 MG eCW1 ([facility]) NITROFURANTOIN, MACROCRYSTALS 25 MG / Ni trofurantoin, Monohydrate 75 MG Oral Capsule [Macrobid] Macrobid 100 MG Macrobid 100 MG 01/08/2020 12:00:00 AM EDT suspended Macrobid 100 MG eCW1 ( [facility]) 100 mg 11/15/2019 12:00:00 AM EDT capsule 14 TAKE ONE CAPSULE BY MOUTH TWICE A DAY TAKE ONE CAPSULE BY MOUTH TWICE A DAY SOLD: 11/15/2019 Pablo Guzmán 875-125 mg 07/16/2019 12:00:00 AM EDT tablet 20 TAKE ONE TABLET BY MOUTH TWICE A DAY FOR 10 DAYS TAKE ONE TABLET BY MOUTH TWICE A DAY FOR 10 DAYS SOLD: 07/16/2019 [facility] 800 mg 07/16/2019 12:00:00 AM EDT tablet 30 TAKE ONE TABLET BY MOUTH THREE TIMES A DAY TAKE ONE TABLET BY MOUTH THREE TIMES A DAY SOLD: 07/16/2019 [facility] Insurance Providers Payer name Policy type / Coverage type Policy ID Covered libertarian ID Covered libertarian's relationship to polanco Policy Polacno Plan Information UN COMMUNITY PLAN MCDO [id number] SP [id number] [facility]([employer]) O [id number] S [id number] Managed Care - [facility] Community Plan P [id number] S [id number] Medicaid S [id number] S [id number] UNHC COMMUNITY PLAN MCDO [id number] SP [id number] MEDICAID [id number] SP [id number] SELF PAY ONLY [id number] SP [id number] BS Idania Hmo Blue Option Medigap Part B [id number] Family De pendent [id number] [place]ig[place] Part B [id number] Family Dependent [id number] [facility] Community Plan Commercial [id number] Self [id number] UNHC COMMUNITY PLAN MCDHMO [id number] SP [id number] [facility] COMMUNITY PLAN MCDO [id number] SP [id number] BS Idania Hmo Blue Option Medigap Part B [id number] Family De pendent [id number] BS Idania Hmo Blue Option Medigap Part B [id number] Family De pendent [id number] BS Idania Hmo Blue Option Medigap Part B [id number] Family De pendent [id number] Managed Care - Community Plan [facility] P [id number] S [id number] BS Idania Hmo Blue Option Medigap Part B [id number] Family De pendent [id number] BS Idania Hmo Blue Option Medigap Part B [id number] Family De pendent [id number] BS Idania Hmo Blue Option Medigap Part B [id number] Family De pendent [id number] BS Idania Hmo Blue Option Medigap Part B [id number] Family De pendent [id number] BS Idania Hmo Blue Option Medigap Part B [id number] Family De pendent [id number] BS Idania Hmo Blue Option Medigap Part B [id number] Family De pendent [id number] BS Idania Hmo Blue Option Medigap Part B [id number] Family De pendent [id number] BS Idania Hmo Blue Option Medigap Part B [id number] Family De pendent [id number] BS Idania Hmo Blue Option Medigap Part B [id number] Family De pendent [id number] BS Idania Hmo Blue Option Medigap Part B [id number] Family De pendent [id number] BS Idania Hmo Blue Option Medigap Part B [id number] Family De pendent [id number] BS Idania Hmo Blue Option Medigap Part B [id number] Family De pendent [id number] BS Idania Hmo Blue Option Medigap Part B [id number] Family De pendent [id number] BS Idania Hmo Blue Option Medigap Part B [id number] Family De pendent [id number] BS Idania Hmo Blue Option Medigap Part B [id number] Family De pendent [id number] BS Idania Hmo Blue Option Medigap Part B [id number] Family De pendent [id number] [facility] P [id number] S [id number] SELF PAY ONLY UNAVAILABLE UNAV AILABLE SELF PAY UNAVAILABLE SP UNAVAILA BLE [facility] Care - [facility] P [id number] S [id number] [facility] [employer] (HMO) Self [facility](MCA[employer]) P [id number] S [id number] [facility] PLAN MCDHMO [id number] SP [id number] HMO BLUE [id number] SP [id number] [employer] P [id number] S [id number] Problems, Conditions, and Diagnoses Code Display Name Description Problem Type Effective Dates Data Source(s) O24.312 Unspecified pre-existing jeanette betes mellitus in , second trimester 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, antepartum Problem 03/17/2020 12:00:00 AM EST eCW1 ([facility]) O99.213 Obesity complicating , third tr imester Obesity complicating in third trimester Problem 01/28/2020 12:00:00 AM EST eCW1 ([facility]) E66.01 Morbid obesity Morbid (severe) obesity due to excess c alories Problem 01/28/2020 12:00:00 AM EST eCW1 ([facility]) Z34.80 care Supervision of other normal P roblem 09/11/2019 12:00:00 AM EDT eCW1 ([facility]) Surgeries/Procedures Procedure Description Date Indications Data Source(s) NONSTRESS TEST 03/31/2020 12:00:00 AM EST eCW1 ([facility]) Immunization: Boostrix 0.5mL IM (TDAP) 01/28/2020 12:0 0:00 AM EST eCW1 ([facility]) OB Visit 02/20/2019 12:00:00 AM EST e CW1 ([facility]) Results ID Date Data Source CBC - Complete Blood Count 01/01/2020 03:52:37 AM EDT eCW1 ( [facility]) Name Value Range Interpretation Code Description Data Miroslava rce(s) Supporting Document(s) 8.8 eCW1 ([facility]) 4.10 eCW1 ([facility]) 36.5 eCW1 ([facility]) 12.1 eCW1 ([facility]) 89.0 eCW1 ([facility]) 14.3 eCW1 ([facility]) 29.5 eCW1 ([facility]) 33.2 eCW1 ([facility]) 290 eCW1 ([facility]) ID Date Data Source CHLAMYDIA & GC DNA AMPLIFICAT 01/01/2020 03:52:29 AM EDT eCW 1 ([facility]) Name Value Range Interpretation Code Description Data Miroslava rce(s) Supporting Document(s) Chlamydia trachomatis rRNA [Presence] in Unspecified specimen by Probe and target amplification method NEGATIVE eCW1 ([facility]) ID Date Data Source WWBC OBS COMPLETE US 01/01/2020 03:42:26 AM EDT eCW1 ([facility]) Name Value Range Interpretation Code Description Data Miroslava rce(s) Supporting Document(s) WWBC OBS COMPLETE US eCW1 ([facility]) Procedure Social History Code Duration Value Status Description Data Source(s ) Smoking 03/31/2020 12:00:00 AM EST Current Smoker completed Curre nt Smoker eCW1 ([facility]) Smoking 03/16/2020 12:00:00 AM EST Current Smoker completed Curre nt Smoker eCW1 ([facility]) Smoking 03/16/2020 12:00:00 AM EST Current Smoker completed Curre nt Smoker eCW1 ([facility]) Smoking 02/24/2020 12:00:00 AM EST Current Smoker completed Curre nt Smoker eCW1 ([facility]) Smoking 02/24/2020 12:00:00 AM EST Current Smoker completed Curre nt Smoker eCW1 ([facility]) Smoking 01/28/2020 12:00:00 AM EST Current Smoker completed Curre nt Smoker eCW1 ([facility]) Smoking 01/28/2020 12:00:00 AM EST Current Smoker completed Curre nt Smoker eCW1 ([facility]) Smoking 10/15/2019 12:00:00 AM EDT Current Smoker completed Curre nt Smoker eCW1 ([facility]) Smoking 10/15/2019 12:00:00 AM EDT Current Smoker completed Curre nt Smoker eCW1 ([facility]) Vital Signs ID Date Data Source UNK Name Value Range Interpretation Code Description Data Source(s) Diastolic blood pressure 84 mm[Hg] 84 mm[Hg] eCW1 ([facility]) Systolic blood pressure 120 mm[Hg] 120 mm[Hg] e CW1 ([facility]) Body mass index (BMI) [Ratio] 48.357 kg/m2 48.3 57 kg/m2 eCW1 ([facility]) Body height 66 [in_i] 66 [in_i] W1 ([facility]) Body weight 135.9 kg 135.9 kg eCW1 ([facility]) Body weight 299.6 [lb_av] 299.6 [lb_av] eCW1 ([facility]) Diastolic blood pressure 80 mm[Hg] 80 mm[Hg] eCW1 ([facility]) Systolic blood pressure 128 mm[Hg] 128 mm[Hg] e CW1 ([facility]) Body mass index (BMI) [Ratio] 48.389 kg/m2 48.3 89 kg/m2 eCW1 ([facility]) Body height 66 [in_i] 66 [in_i] eCW1 ([facility]) Body weight 299.8 [lb_av] 299.8 [lb_av] eCW1 ([facility]) Diastolic blood pressure 78 mm[Hg] 78 mm[Hg] eCW1 ([facility]) Systolic blood pressure 128 mm[Hg] 128 mm[Hg] e CW1 ([facility]) Body mass index (BMI) [Ratio] 47.647 kg/m2 47.6 47 kg/m2 eCW1 ([facility]) Body height 66 [in_i] 66 [in_i] eCW1 ([facility]) Body weight 295.2 [lb_av] 295.2 [lb_av] eCW1 ([facility]) Diastolic blood pressure 76 mm[Hg] 76 mm[Hg] eCW1 ([facility]) Systolic blood pressure 130 mm[Hg] 130 mm[Hg] e CW1 ([facility]) Body mass index (BMI) [Ratio] 45.839 kg/m2 45.8 39 kg/m2 eCW1 ([facility]) Body height 66 [in_i] 66 [in_i] eCW1 ([facility]) Body weight 284 [lb_av] 284 [lb_av] eCW1 ([facility]) Diastolic blood pressure 72 mm[Hg] 72 mm[Hg] eCW1 ([facility]) Systolic blood pressure 120 mm[Hg] 120 mm[Hg] e CW1 ([facility]) Body mass index (BMI) [Ratio] 45.322 kg/m2 45.3 22 kg/m2 eCW1 ([facility]) Body height 66 [in_i] 66 [in_i] eCW1 ([facility]) Body weight 127.37 kg 127.37 kg eCW1 ([facility]) Body weight 280.8 [lb_av] 280.8 [lb_av] eCW1 ([facility]) Diastolic blood pressure 70 mm[Hg] 70 mm[Hg] eCW1 ([facility]) Systolic blood pressure 128 mm[Hg] 128 mm[Hg] e CW1 ([facility]) Body mass index (BMI) [Ratio] 44.386 kg/m2 44.3 86 kg/m2 eCW1 ([facility]) Body height 66 [in_i] 66 [in_i] eCW1 ([facility]) Body weight 275 [lb_av] 275 [lb_av] eCW1 ([facility]) Diastolic blood pressure 76 mm[Hg] 76 mm[Hg] eCW1 ([facility]) Systolic blood pressure 122 mm[Hg] 122 mm[Hg] e CW1 ([facility]) Body mass index (BMI) [Ratio] 43.902 kg/m2 43.9 02 kg/m2 eCW1 ([facility]) Body height 66 [in_i] 66 [in_i] eCW1 ([facility]) Body weight 272 [lb_av] 272 [lb_av] eCW1 ([facility]) Diastolic blood pressure 72 mm[Hg] 72 mm[Hg] eCW1 ([facility]) Systolic blood pressure 122 mm[Hg] 122 mm[Hg] e CW1 ([facility]) Body mass index (BMI) [Ratio] 48.615 kg/m2 48.6 15 kg/m2 eCW1 ([facility]) Body height 66 [in_us] 66 [in_us] eCW1 ([facility]) Body weight Measured 301.2 [lb_av] 301.2 [lb_av ] eCW1 ([facility]) Diastolic blood pressure 78 mm[Hg] 78 mm[Hg] eCW1 ([facility]) Systolic blood pressure 122 mm[Hg] 122 mm[Hg] e CW1 ([facility]) Body mass index (BMI) [Ratio] 48.098 kg/m2 48.0 98 kg/m2 eCW1 ([facility]) Body height 66 [in_us] 66 [in_us] eCW1 ([facility]) Body weight Measured 298 [lb_av] 298 [lb_av] eC W1 ([facility]) Patient Treatment Plan of Care Planned Activity Planned Date Details Description Data Source (s) NITROFURANTOIN, MACROCRYSTALS 25 MG / Ni trofurantoin, Monohydrate 75 MG Oral Capsule [Macrobid] 01/08/2020 12:00:00 AM EDT eC W1 ([facility])
[2020-04-11] MEDS ORDERED: PENICILLIN G POTASSIUM IV 5 MU in D5W MINI-BAG PLUS 100 ML IV STA (09:05)
[2020-04-11] MEDS ORDERED: LACTATED RINGER'S 1000 ML IV STA (09:05)
--- NOTE | 2020-04-11 09:30 | HPEPDOC ---
Obstetrical History & Physical General Date of Admission Apr 11, 2020 at 07:14 History of Present Illness 24-year-old at 39+3 weeks gestation. Final EDC: 04/15/2020. Presents for an elective non-medically indicated induction of labor. She denies vaginal bleeding, loss of fluid or painful, frequent uterine contractions. She reports regular movement. She denies headache, visual changes, right upper quadrant pain, shortness of breath or chest pain. course: Obesity/BMI 51.1, tobacco use during , GBS positive PMH: GERD, rheumatoid arthritis SH: Tonsillectomy/adenoidectomy, foot surgery Meds: vitamin All: NKDA CASH MANAGEMENT OFFICER: No STI or dysplasia OB: March 2019, 38 weeks, , uncomplicated, 6 lbs. 7 oz. Sochx: No tobacco, alcohol or drug use FamHx:, Hypertension, diabetes mellitus rheumatoid arthritis labs: Blood type A+, antibody screen negative, HepBsAg neg, HIV neg, rubella immune, Hep C antibody negative, RPR nonreactive, CT/GC neg, urine culture negative, 1 hour glucose challenge test 60, GBS positive Imagin01/23/2020. anatomic survey complete and within normal limits, posterior fundal placenta Past Medical History Allergies Coded Allergies: No Known Allergies (Unverified , 03/20/19) Medications Miscellaneous Medications 2/Iron/Folic Acid/Om3 (Complete Sid Dha) 1 Each Combo..pkg Physical Examination Physical Examination GENERAL: Alert and oriented times three. BREAST: . ABDOMEN: Gravid and non-tender to touch. FETUS: Is vertex (VTX) by sterile vaginal examination (SVE), fetus is vertex (VTX) by John. HEART RATE: Regular rate and rhythm. LUNGS: Clear to auscultation (CTA). EXTREMITIES: No edema. No clonus. SVE: 1-2 cm, 50% effacement, -3 station, cephalic, intact. No bloody show. EFM: Category 1 heart rate tracing. [place]: Irregular contractions Vital Signs/I&O Vital Signs Date Time Temp Pulse Resp B/P (MAP) Pulse Ox O2 Delivery O2 Flow Rate FiO2 04/11/20 08:48 99 18 104/63 (77) 04/11/20 07:40 96.5 Laboratory Data 24H LABS Laboratory Tests 2 04/11/20 07:34: Serology Scanned Report Hepatitis B Testing Assessment/Plan Assessment Admit and orient. Routine labs/orders Group B Streptococcus (GBS) positive. GBS prophylaxis with penicillin Start with cervical ripening via misoprostol 50mcg SL every 4-6 hours until cervix is favorable. Counseled on Pitocin and induction of labor (IOL). Mode of delivery plan: ; as indicated. Plan Admit and orient. Director Hematology and consent. Diet: . Group B Streptococcus (GBS) [negative]. Labs and intravenous (IV) per unit protocol. Counseled on Pitocin and induction of labor (IOL). Lactated Ringers (LR): Bolus mL, then at mL/hr. Anticipate [normal spontaneous delivery ()]. C-S as appropriate. MATTHIAS JENKINS DO Apr 11, 2020 09:30
[2020-04-11] MEDS: miSOPROStol 50MCG 1/2 TABLET SL SCH ×2 (09:54→13:31)
[2020-04-11 09:58] LABS: HEMATOCRIT 37.3 % (36.0-47.0); HEMOGLOBIN 11.7 g/dl (12.0-15.5); MEAN CORPUSCULAR HEMOGLOBIN 26.9 pg (27.0-33.0); MEAN CORPUSCULAR HGB CONC 31.4 g/dl (32.0-36.5); MEAN CORPUSCULAR VOLUME 85.7 fl (80.0-96.0); PLATELET COUNT, AUTOMATED 367 10^3/uL (150-450); RED BLOOD COUNT 4.35 10^6/uL (4.00-5.40); WHITE BLOOD COUNT 12.1 10^3/uL (4.0-10.0)
[2020-04-11] MEDS: LR 1,000 ML IV SCH ×2 (11:14→17:43)
[2020-04-11] MEDS: PENICILLIN G POTASSIUM IV 2.5 MU in IV 1 EA IV SCH ×2 (13:31→18:23)
--- NOTE | 2020-04-11 18:57 | IPNPDOC ---
Obstetrical Progress Note Date of Service Apr 11, 2020 Subjective Patient reports feeling very uncomfortable with contractions. Requesting epidural. No LOF/VB. Objective Vital Signs Date Time Temp Pulse Resp B/P (MAP) Pulse Ox O2 Delivery O2 Flow Rate FiO2 04/11/20 18:22 84 18 124/65 (84) 04/11/20 17:07 97.5 Assessment Heart Rate Tracing: Category I Tocometer Contractions: Yes Frequency: every 2-5 min. Sterile Vaginal Examination Dilation: 6 cm Effacement (%): 100% Station: -2 Cervical Consistency: Soft Cervical Position: Anterior Postion/Presentation: Cephalic presentation Assessment and Plan Additional Comments Active labor, normal progression. Reassuring maternal and status. Anesthesia notified of patient's request for epidural. MATTHIAS JENKINS DO Apr 11, 2020 18:57
[2020-04-11] MEDS ORDERED: fentaNYL 100 MCG/2 ML INJECTION (J3010) As Ordered ONE (19:06)
[2020-04-11] MEDS ORDERED: FENTANYL 2MCG/ML ROPIVACAINE 0.2% IN 0.9% NACL 100ML IVBAG As Ordered ONE (19:07)
[2020-04-11] MEDS ORDERED: OXYTOCIN 30 UNITS IN 0.9% NaCl 500ML IV BAG (J2590) As Ordered ONE (20:40)
[2020-04-11] MEDS ORDERED: OXYTOCIN DRIP 30 UNITS in IV 1 EA IV SCH ×2 (20:45→22:48)
[2020-04-11] MEDS ORDERED: REFRIGERATOR IV KEYS XX PRN (21:00)
[2020-04-11] MEDS ORDERED: diphenhydrAMINE 50MG/ML VIAL (J1200) IV PRN (21:00)
[2020-04-11] MEDS ORDERED: ePHEDrine SULFATE 25 MG/5 ML(5MG/ML) SYRINGE IV PRN (21:00)
[2020-04-11] MEDS ORDERED: ONDANSETRON 4MG/2ML VIAL IV PRN ×2 (21:00→23:00)
[2020-04-11] MEDS ORDERED: NALOXONE INJ 0.4MG/1ML VIAL (J2310 PER 1MG) IV PRN (21:00)
[2020-04-11] MEDS ORDERED: FENTANYL/ROPIVACAINE/NACL BAG 100 ML EPIDURAL SCH (21:00)
[2020-04-11] MEDS ORDERED: LACTATED RINGER'S 1000 ML IV PRN (21:00)
[2020-04-11] MEDS ORDERED: EPIDURAL/PCA KEYS XX PRN (21:00)
[2020-04-11] MEDS ORDERED: EPIDURAL COMMENT XX SCH (21:00)
[2020-04-11] MEDS ORDERED: LR 1,000 ML IV SCH (22:48)
--- NOTE | 2020-04-11 22:53 | DNPDOC ---
[facility] Delivery Note Delivery Note DATE OF DELIVERY: 04/11/20 TIME OF DELIVERY: 2234 Spontaneous vaginal delivery. ULTRASONIC WELDING MACHINE OPERATOR: Dr. Uriel Garcia DO FACOG ANESTHESIA: epidural LACERATION: left labial ESTIMATED BLOOD LOSS: 200 mL. FINDINGS: 7 pound 4 ounce (3280g) female , Score 8 and 9. DELIVERY SUMMARY: The active phase and second stage of labor progressed in normal fashion.. She received Pitocin augmentation throughout her labor course. The head delivered in the CLARY position, and restituted LOT. No nuchal cord was noted. The anterior shoulder delivered with gentle downward guidance and the remainder of the body delivered with ease. The baby was placed on the patient's chest. Delayed cord clamping occurred for approximately 1 minute. The cord was then doubly clamped and cut. IV Pitocin was bolused to actively manage the third stage of labor. The placenta delivered intact without any difficulty within 10 minutes of delivery. The uterine fundus was noted to be firm and 2 cm below the umbilicus. The cervix, vagina, vulva and perineum were inspected. A left labial laceration was noted and immediately repaired with 4-0 Vicryl in typical fashion. Excellent hemostasis was noted. Sponge, needle and instrument counts were correct per protocol. DO GOLDEN Arenas JONATHAN R. DO Apr 11, 2020 22:53
[2020-04-11] MEDS ORDERED: DOCUSATE SODIUM 100MG CAPSULE PO PRN (23:00)
[2020-04-11] MEDS ORDERED: RHOGAM 300 MCG (1500 IU) INJ (J2790) IM SCH (23:00)
[2020-04-11] MEDS ORDERED: BENZOCAINE 20% HEMORRHOIDAL OINTMENT 28GM TUBE TOP PRN (23:00)
[2020-04-11] MEDS ORDERED: IBUPROFEN 600MG TAB PO PRN (23:00)
[2020-04-11] MEDS ORDERED: MEASLES,MUMPS,RUBELLA VACCINE INJ (MMR-II) (90707) SC SCH (23:00)
[2020-04-11] MEDS ORDERED: ACETAMINOPHEN TAB 650MG DOSE (2X325MG) PO PRN (23:00)
[2020-04-12 01:15] VITALS: BP 130/86
[2020-04-12 06:00] VITALS: BP 135/78
[2020-04-12] MEDS: PRENATAL VITAMINS CHEWABLE TABLET PO SCH (07:22)
[2020-04-12] MEDS: IBUPROFEN 800 MG TAB PO PRN (07:26)
--- NOTE | 2020-04-12 13:14 | IPNPDOC ---
Progress Note Date of Service: Apr 12, 2020 Day#: 1 Progress Note SUBJECT: Status post . She has been ambulating, voiding spontaneously without issue and tolerating regular diet. Lochia decreasing/minimal. Pain is well-controlled. Denies headache, visual changes, right upper quadrant pain, shortness breath or chest pain. OBJECTIVE: VITAL SIGNS: Within normal limits, afebrile. Alert and oriented times three. Abdomen: Fundus firm at U-2. Soft, NTTP. ASSESSMENT: Status post uncomplicated spontaneous vaginal delivery. Vitals within normal limits, afebrile, hemodynamically stable with no evidence of infection. PLAN: Discharge to home tomorrow Tylenol and Motrin for pain. VS, I&O, 24H, Fishbone Vital Signs/I&O Vital Signs Date Time Temp Pulse Resp B/P (MAP) Pulse Ox O2 Delivery O2 Flow Rate FiO2 04/12/20 06:00 98.0 90 18 135/78 (97) I&O- Last 24 Hours up to 6 AM 04/12/20 05:59 Intake Total 4890 ml Output Total 1250 ml Balance 3640 ml MATTHIAS JENKINS DO Apr 12, 2020 13:14
[2020-04-12] MEDS: ACETAMINOPHEN 500 MG TAB PO PRN (17:14)
[2020-04-12 18:06] VITALS: BP 136/76
[2020-04-13] MEDS: ACETAMINOPHEN 500 MG TAB PO PRN (03:15)
[2020-04-13 06:00] VITALS: BP 115/57
--- NOTE | 2020-04-13 06:25 | IPNPDOC ---
Progress Note Date of Service: Apr 13, 2020 Day#: 2 Progress Note SUBJECT: Status post . She has been ambulating, voiding spontaneously without issue and tolerating regular diet. Lochia decreasing/minimal. Pain is well-controlled. Denies headache, visual changes, right upper quadrant pain, shortness breath or chest pain. OBJECTIVE: VITAL SIGNS: Within normal limits, afebrile. Alert and oriented times three. Abdomen: Fundus firm at U-2. Soft, NTTP. ASSESSMENT: Status post uncomplicated spontaneous vaginal delivery. Vitals within normal limits, afebrile, hemodynamically stable with no evidence of infection. PLAN: Discharge to home today. Tylenol and Motrin for pain. Routine instructions/precautions reviewed. Routine PP visit in 6 weeks in clinic. VS, I&O, 24H, Fishbone Vital Signs/I&O Vital Signs Date Time Temp Pulse Resp B/P (MAP) Pulse Ox O2 Delivery O2 Flow Rate FiO2 04/13/20 06:00 98.3 86 20 115/57 (76) 100 Room Air MATTHIAS JENKINS DO Apr 13, 2020 06:25
[2020-04-13] MEDS: PRENATAL VITAMINS CHEWABLE TABLET PO SCH (07:49)
[2020-04-13] MEDS: IBUPROFEN 800 MG TAB PO PRN (07:49)
[2020-04-13] MEDS ORDERED: INFLUENZA QUADRIVALENT PF VACCINE 0.5ML SYRINGE IM ONE (09:00)
== END 2020-04-13 11:55 | disposition home or self-care (01) | DRG 560 ==
LOC: M LDI 07:14 → M OBS 04-12 01:12
PROVIDERS: ADMIT Obstetrics & Gynecology; ATTEND Obstetrics & Gynecology
PROC: 10E0XZZ Delivery of Products of Conception, External Approach (ICD-10-PCS; principal; 2020-04-11)
PROC: 0HQ9XZZ Repair Perineum Skin, External Approach (ICD-10-PCS; 2020-04-11)
PROC: 3E0P7GC Introduction of Other Therapeutic Substance into Female Reproductive, Via Natural or Artificial Opening (ICD-10-PCS; 2020-04-11)
DX: O99.214 Obesity complicating childbirth (principal); E66.9 Obesity, unspecified; Z3A.39 39 weeks gestation of pregnancy; O99.334 Smoking (tobacco) complicating childbirth; F17.200 Nicotine dependence, unspecified, uncomplicated; Z37.0 Single live birth; O99.824 Streptococcus B carrier state complicating childbirth; O70.0 First degree perineal laceration during delivery

== ENCOUNTER 2020-08-19 12:28 | Inpatient (IN) | payer OTHER ==
[~2020-08-19] VITALS: Ht 167.6 cm; Wt 129.7 kg
[2020-08-19 13:30] LABS: BASO # 0.1 10^3/uL (0.0-0.2); BASO % 0.6 % (0.0-1.0); EOS % 0.3 % (0.0-3.0); HEMATOCRIT 41.9 % (36.0-47.0); HEMOGLOBIN 13.7 g/dl (12.0-15.5); LYMPH # 1.2 10^3/uL (1.5-5.0); LYMPH % 11.3 % (24.0-44.0); MEAN CORPUSCULAR HGB CONC 32.7 g/dl (32.0-36.5); MEAN CORPUSCULAR VOLUME 85.5 fl (80.0-96.0); MONO # 0.9 10^3/uL (0.0-0.8); MONO % 8.4 % (2.0-8.0); NEUTROPHILS # 8.5 10^3/uL (1.5-8.5); NEUTROPHILS % 78.8 % (36.0-66.0); PLATELET COUNT, AUTOMATED 303 10^3/uL (150-450); WHITE BLOOD COUNT 10.8 10^3/uL (4.0-10.0)
[2020-08-19] MEDS ORDERED: ACETAMINOPHEN 500 MG TAB PO ONE (13:30)
[2020-08-19] MEDS ORDERED: NS 1,000 ML IV ONE (13:30)
[2020-08-19 14:07] LABS: HCG, SERUM QUALITATIVE NEGATIVE (NEGATIVE)
[2020-08-19 14:08] LABS: ALBUMIN 3.5 GM/DL (3.2-5.2); ALT/SGPT 14 U/L (12-78); BILIRUBIN,DIRECT 0.1 MG/DL (0.0-0.2); BILIRUBIN,TOTAL 0.8 MG/DL (0.2-1.0); BLOOD UREA NITROGEN 7 MG/DL (7-18); CALCIUM LEVEL 8.6 MG/DL (8.5-10.1); CARBON DIOXIDE LEVEL 20 MEQ/L (21-32); CHLORIDE LEVEL 110 MEQ/L (98-107); CREATININE FOR GFR 0.74 MG/DL (0.55-1.30); GLOMERULAR FILTRATION RATE > 60.0 (>60); GLUCOSE, FASTING 98 MG/DL (70-100); LIPASE 40 U/L (73-393); POTASSIUM SERUM 4.8 MEQ/L (3.5-5.1); SODIUM LEVEL 137 MEQ/L (136-145); TOTAL PROTEIN 7.3 GM/DL (6.4-8.2)
[2020-08-19] MEDS ORDERED: cefTRIAXone SOD 2 GM in D5W MINI-BAG PLUS 50 ML IV ONE (14:25)
[2020-08-19] MEDS ORDERED: ISOVUE-370 76% 100ML VIAL As Ordered ONE (14:41)
--- NOTE | 2020-08-19 15:20 | REP ---
INDICATION: R flank pain radiating to RLQ, fevers. COMPARISON: None TECHNIQUE: Axial contrast-enhanced images from the lung bases to the pubic symphysis using 100 cc Isovue 370 intravenous contrast material. . This CT examination was performed using the following dose reduction techniques: Automated exposure control, adjustment of mA and/or kv according to the patient's size, and the use of iterative reconstruction technique. FINDINGS: Liver, spleen, pancreas, gallbladder, bilateral adrenal glands and left kidney are normal. Right kidney demonstrates perinephric stranding and somewhat hazy parenchymal appearance with a low-density area along the posterior mid to lower pole. Findings suggest pyelonephritis and possible lobar nephronia. The enteric system including stomach, small, and large bowel appears normal. No evidence for obstruction or acute inflammatory process. Normal terminal ileum and appendix are identified in the right lower quadrant. Pelvis demonstrates normal bladder and age-appropriate uterus/adnexa No ascites. No free air. No intraperitoneal or retroperitoneal adenopathy. Abdominal aorta and vasculature appear normal. Musculoskeletal structures are intact and without acute osseous abnormality. IMPRESSION: Acute findings related to the right kidney suggesting pyelonephritis and possible early lobar nephronia. <Electronically signed by Gabirel Burch > 08/19/20 [id number]
[2020-08-19] MEDS ORDERED: ONDANSETRON 4MG/2ML VIAL IV ONE (16:10)
[2020-08-19] MEDS ORDERED: MORPHINE 4 MG/ML 1ML VIAL/SYRINGE (J2270) IV ONE (16:10)
[2020-08-19] MEDS ORDERED: ONDANSETRON 4MG/2ML VIAL IV PRN (16:30)
[2020-08-19] MEDS ORDERED: NS 1,000 ML IV SCH (16:30)
[2020-08-19] MEDS ORDERED: KETOROLAC 30 MG/ML 1ML VIAL IV PRN (16:30)
[2020-08-19] MEDS ORDERED: ACETAMINOPHEN TAB 650MG DOSE (2X325MG) PO PRN (16:30)
[2020-08-19] MEDS ORDERED: NEXP1IMP SC (16:43)
[2020-08-19 16:52] LABS: RSV AMPLIFICATION NEGATIVE (NEGATIVE)
--- NOTE | 2020-08-19 17:32 | HPEPDOC ---
General Date of Admission 08/19/20 Date of Service: August 19, 2020 Chief Complaint The patient is a 24-year-old female admitted with a reason for visit of Abd Pain, Fever, Vomiting. History of Present Illness 24 year old female with no past medical history presented to the ED with complaints of right flank pain, for the past 4 days and fever, chills, nausea and vomiting from this morning. The pain is dull aching in nature about 7/10 in intensity located in the right flank and the right mid back associated with the dysuria and frequency of urination and radiating downwards to the suprapubic ar ea . , She started having fever, chills and vomiting nausea from this morning and could not keep any food down, so came to the emergency room. On arrival to ED, she was febrile to 101.5, tachycardic 113 . Her UA was very dirty. CT abdomen and pelvis showed right pyelonephritis and possible early lobar nephronia. Patient was admitted for Pyelonephritis / early renal abscess. Home Medications Scheduled Cefdinir (Cefdinir) 300 Mg Capsule, 1 CAP PO BID Etonogestrel (Nexplanon) 68 Mg Implant, 68 MG SC ASDIRECTED, (Reported) INSERTED 07/28/2020 Scheduled PRN Acetaminophen (Acetaminophen) 325 Mg Tablet, 650 MG PO Q6HP PRN for PAIN / FEVER Allergies Coded Allergies: No Known Allergies (Unverified , 03/20/19) Past Medical History Medical History Morbid obesity Surgical History tonsils, adenoids Family History Significant Family History: Diabetes (10. Grandmother), Hypertension (, mother) Social History * Smoker: current smoker Alcohol: rarely Drugs: denies A-FIB/CHADSVASC A-FIB History Current/History of A-Fib/PAF?: No Review of Systems Constitutional: Reports: Chills, Fever Eyes: Denies: Pain, Vision change ENT: Reports: Head Aches Skin: Denies: Rash, Lesions, Breakdown Pulmonary: Denies: Dyspnea, Cough Cardiovascular: Denies: Chest Pain, Palpitations, Orthopnea, Paroxysmal Noc. Dyspnea, Lt Headedness Gastrointestinal: Reports: Nausea, Vomiting, Abdominal Pain Genitourinary: Reports: Dysuria, Frequency Physical Examination General Exam: Positive: Alert, Cooperative, No Acute Distress Eye Exam: Positive: PERRLA, Conjunctiva & lids normal, EOMI; Negative: Sclera icteric ENT Exam: Positive: Atraumatic, Mucous membr. moist/pink, Pharynx Normal Neck Exam: Positive: Supple; Negative: JVD, thyromegaly Chest Exam: Positive: Clear to auscultation, Normal air movement Heart Exam: Positive: Tachycardic, Regular Rhythm, Normal S1, Normal S2; Negative: Murmurs, Rubs Abdomen Exam: Positive: Normal bowel sounds, Soft, Tenderness (right lower quadrant, right CVA ), Other (No guarding or rigidity); Negative: Hepatospenomegaly Extremity Exam: Negative: Clubbing, Cyanosis, Edema Vital Signs Vital Signs Date Time Temp Pulse Resp B/P (MAP) Pulse Ox O2 Delivery O2 Flow Rate FiO2 08/19/20 16:16 08/19/20 16:15 16 100 Room Air 08/19/20 15:31 100.0 96 Laboratory Data Labs 24H Laboratory Tests 2 08/19/20 13:05: Immature Granulocyte % (Auto) 0.6, Neutrophils (%) (Auto) 78.8H, Lymphocytes (%) (Auto) 11.3L, Monocytes (%) (Auto) 8.4H, Eosinophils (%) (Auto) 0.3, Basophils (%) (Auto) 0.6, Neutrophils # (Auto) 8.5, Lymphocytes # (Auto) 1.2L, Monocytes # (Auto) 0.9H, Eosinophils # (Auto) 0.0, Basophils # (Auto) 0.1, Nucleated Red Blood Cells % (auto) 0.0, Urine Color YELLOW, Urine Appearance HAZY, Urine pH 6.0, Urine Specific Homer 1.009, Urine Protein 1+H, Urine Glucose (UA) NEGATIVE, Urine Ketones NEGATIVE, Urine Blood 2+H, Urine Nitrite NEGATIVE, Urine Bilirubin NEGATIVE, Urine Urobilinogen 0.2, Urine Leukocyte Esterase 3+H, Urine WBC (Auto) TNTCH, Urine RBC (Auto) 33H, Urine Hyaline Casts (Auto) 0, Urine Bacteria (Auto) 2+H, Urine Squamous Epithelial Cells 1, Urine Mucus (Auto) SMALL, Urine Sperm (Auto) , Anion Gap 7L, Glomerular Filtration Rate > 60.0, Calcium Level 8.6, Total Bilirubin 0.8, Direct Bilirubin 0.1, Aspartate Amino Transf (AST/SGOT) 26, Alanine Aminotransferase (ALT/SGPT) 14, Alkaline Phosphatase 94, Total Protein 7.3, Albumin 3.5, Albumin/Globulin Ratio 0.9L, Lipase 40L, Human Chorionic Gonadotropin, Qual NEGATIVE 08/19/20 14:27: Lactic Acid Level 1.1 08/19/20 16:05: CBC/BMP Laboratory Tests 08/19/20 13:05 Microbiology Microbiology 08/19/20 Blood Culture, Received Pending 08/19/20 Blood Culture, Received Pending 08/19/20 Urine Culture, Received Pending Assessment/Plan 24 year old female with no past medical history presented to the ED with complaints of right flank pain, for the past 4 days and fever, chills, nausea and vomiting from this morning. The pain is dull aching in nature about 7/10 in intensity located in the right flank and the right mid back associated with the dysuria and frequency of urination and radiating downwards to the suprapubic area . , She started having fever, chills and vomiting nausea from this morning and could not keep any food down, so came to the emergency room. On arrival to ED, she was febrile to 101.5, tachycardic 113 . Her UA was very dirty. CT abdomen and pelvis showed right pyelonephritis and possible early lobar nephronia. Patient was admitted for Pyelonephritis / early renal abscess. Pyelonephritis/early renal abscess Will start on Zosyn Urine and blood cultures sent If does not respond to antibiotics. Will need urology evaluation for possible formation of abscess Morbid obesity BMI of 46.2 Would benefit from loss of weight . Follow up with PMD Addendum: Patient left AMA after about 1 hour after admission. I sent prescription for cefdinir to her pharmacy. Plan / VTE VTE Prophylaxis Ordered?: Yes MOODY HUANG MD August 19, 2020 16:29
[2020-08-19] MEDS ORDERED: ACET1TAB55 PO (18:03)
[2020-08-19] MEDS ORDERED: CEFD1CAP8 PO (18:03)
[2020-08-19 18:18] VITALS: BP 128/78
[2020-08-19] MEDS ORDERED: PIPERACILLIN/TAZOBACTAM SOD 3.375 GM in D5W MINI-BAG PLUS 50 ML IV SCH (20:00)
== END 2020-08-19 18:23 | disposition left against medical advice (07) | DRG 463 ==
LOC: M ED 12:28 → UNDOADMIN 16:29 → M ED INP 16:29 → UNDODISIN 20:12
PROVIDERS: ADMIT Internal Medicine Nephrology; ATTEND Internal Medicine Nephrology
DX: N10 Acute pyelonephritis (principal); E66.01 Morbid (severe) obesity due to excess calories; F17.200 Nicotine dependence, unspecified, uncomplicated; Z79.3 Long term (current) use of hormonal contraceptives; Z79.899 Other long term (current) drug therapy; Z82.49 Family history of ischemic heart disease and other diseases of the circulatory system; Z68.41 Body mass index [BMI] 40.0-44.9, adult

== ENCOUNTER → 2020-11-17 | Outpatient (REF) | payer OTHER ==
[~2020-11-17] MED LIST changes: +ACET1TAB55 PO; +CEFD1CAP8 PO; +NEXP1IMP SC; +NITR100C2 PO; +PHEN-501 PO
== END ==
LOC: M LAB REF 09:36
PROVIDERS: ATTEND Physician Assistant
DX: R30.0 Dysuria (principal)

== ENCOUNTER 2020-11-20 10:31 | Emergency (ER) | payer OTHER ==
[~2020-11-20] VITALS: Ht 167.6 cm; Wt 121.4 kg
[~2020-11-20 10:31] MED LIST changes: -NITR100C2 PO; -PHEN-501 PO
[2020-11-20 12:51] LABS: BASO # 0.1 10^3/uL (0.0-0.2); BASO % 0.6 % (0.0-1.0); EOS # 0.1 10^3/uL (0.0-0.5); EOS % 0.7 % (0.0-3.0); HEMATOCRIT 44.3 % (36.0-47.0); HEMOGLOBIN 14.3 g/dl (12.0-15.5); MEAN CORPUSCULAR HEMOGLOBIN 27.9 pg (27.0-33.0); MEAN CORPUSCULAR HGB CONC 32.3 g/dl (32.0-36.5); MEAN CORPUSCULAR VOLUME 86.4 fl (80.0-96.0); MONO # 0.5 10^3/uL (0.0-0.8); MONO % 4.9 % (2.0-8.0); NEUTROPHILS # 8.4 10^3/uL (1.5-8.5); NEUTROPHILS % 75.4 % (36.0-66.0); PLATELET COUNT, AUTOMATED 363 10^3/uL (150-450); RED BLOOD COUNT 5.13 10^6/uL (4.00-5.40); WHITE BLOOD COUNT 11.1 10^3/uL (4.0-10.0)
--- NOTE | 2020-11-20 13:10 | REP ---
INDICATION: rule out pyelo and nephrolithiasis left flank pain. COMPARISON: Comparison CT study August 19, 2020. TECHNIQUE: Helical scanning is acquired and 3 mm axial images were reformatted. Coronal and sagittal MPR images were generated and reviewed. FINDINGS: Preliminary digital safety and security officer radiograph demonstrates an unremarkable bowel gas pattern. The lung bases are clear on axial CT images. The liver remains normal in size homogeneous in texture. The spleen is unremarkable no abnormality is noted in the gallbladder. No pancreatic or adrenal abnormality is seen. There is a periumbilical ventral hernia transmitting omental fat. This is unchanged. No other abdominal wall defect is seen. A retroverted uterus is seen in the pelvis. No ovarian abnormality is seen. A normal appendix is seen. There is no evidence of hydronephrosis or intrarenal calculus on either side. No Deonna renal or perinephric stranding is seen. The stranding noted at the lower pole the right kidney on the August 19, 2020 study has resolved. No ureteral or bladder calculus is seen. The urinary bladder is largely empty at the time of scanning. No bony destructive lesion is seen. There are degenerative changes in the symphysis pubis. Mild sclerosis is seen in the SI joints. IMPRESSION: No acute abdominal or pelvic abnormality. No urinary tract calculus, hydronephrosis, or perinephric edema seen. Normal appendix noted. Periumbilical ventral hernia transmitting omental fat. <Electronically signed by Jeremi Grissom > 11/20/20 [id number]
[2020-11-20 13:24] LABS: ALBUMIN 3.9 GM/DL (3.2-5.2); ALT/SGPT 18 U/L (12-78); BILIRUBIN,TOTAL 0.2 MG/DL (0.2-1.0); BLOOD UREA NITROGEN 11 MG/DL (7-18); CALCIUM LEVEL 9.3 MG/DL (8.5-10.1); CARBON DIOXIDE LEVEL 22 MEQ/L (21-32); CHLORIDE LEVEL 114 MEQ/L (98-107); CREATININE FOR GFR 0.67 MG/DL (0.55-1.30); GLOMERULAR FILTRATION RATE > 60.0 (>60); GLUCOSE, FASTING 99 MG/DL (70-100); MAGNESIUM LEVEL 2.3 MG/DL (1.8-2.4); SODIUM LEVEL 141 MEQ/L (136-145); TOTAL PROTEIN 7.9 GM/DL (6.4-8.2)
[2020-11-20] MEDS ORDERED: NITR100C2 PO (14:18)
[2020-11-20] MEDS ORDERED: PHEN-501 PO (14:18)
[2020-11-20 14:32] VITALS: BP 128/77
== END 2020-11-20 14:30 | disposition home or self-care (01) ==
LOC: M ED 10:31
DX: N39.0 Urinary tract infection, site not specified (principal); F17.200 Nicotine dependence, unspecified, uncomplicated; Z79.899 Other long term (current) drug therapy

== ENCOUNTER 2021-01-17 17:55 | Emergency (ER) | payer OTHER ==
[~2021-01-17] VITALS: Ht 167.6 cm; Wt 117.2 kg
[~2021-01-17 17:55] MED LIST changes: +NITR100C2 PO; +PHEN-501 PO
[2021-01-17 17:56] VITALS: BP 133/79
--- OUTSIDE RECORDS SUMMARY | 2021-01-17 18:11 | CCD ---
Author Author Located [facility] Organization Located [facility] Address Unknown Phone Unavailable Care Team Providers Care Wireless Consultant Name Role Phone Uriel Garcia Unavailable PROBLEMS Type Condition ICD9-CM Code BBL63-TZ Code Onset Dates Condition S tatus W/U Status Risk SNOMED Code Notes Problem Contraception management V25.9 Active confirmed 246813147 Problem Morbid obesity with BMI of 45.0-49.9, adult 278.01 Active confirmed 789174443 Problem Irregular menses 626.4 Active confirmed 386 881540 Problem Morbid (severe) obesity due to excess calories E66 .01 Active confirmed 651092939 Problem [facility] 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, antepartum O24.312 Active confirmed Problem Contraceptive education V25.09 Active confirmed 956940606 Problem Dysmenorrhea 625.3 Active confirmed 8421450 00 Problem Supervision of other normal Z34.80 Ac tive confirm 732756161 Problem Obesity complicating in third trimester O99.213 Active confirmed ALLERGIES Allergen (clinical drug ingredient) Drug/Non Drug Allergy do cumented on EMR Reaction Allergy Type Onset Date Status Seasonal Unknown Non Drug Allergy Active ENCOUNTERS from 1994 to 2020-11-20 Encounter Location Date Provider Diagnosis [facility] [address] [facility] [phone] [place] [address] Oct, Uriel Garcia IMMUNIZATIONS Vaccine Route Administration Date Status TDAP [...] MG 1 tablet Orally Once a day Not-Taking Zoloft 50 MG 1 tablet Orally Once a day for 30 day(s) 23 A , 2020 Active Flexeril Not-Taking PROCEDURES No Information RESULTS No Results REASON FOR VISIT issues with nexplanon? MEDICAL (GENERAL) HISTORY Type Description Date Medical History environmental allergies Medical History morbid obesity Medical History GERD Medical History Rheumatoid arthritis Surgical History T & A 06/2003 Surgical History foot surgery Hospitalization History Childbirth 03/29/2019 Goals Section No Information Health Concerns No Information MEDICAL EQUIPMENT No Information MENTAL STATUS No Information FUNCTIONAL STATUS No Information ASSESSMENTS No Information PLAN OF TREATMENT No Information Insurance Providers Payer Name Payer Address Payer Phone Insured Name Patient Relati onship to Insured Coverage Start Date Coverage End Date [facility] [employer] [facility] [address] [facility] [phone] MAGDALENA TOBIN self
--- OUTSIDE RECORDS SUMMARY | 2021-01-17 18:11 | CCD | Continuity of Care Document ---
Author Author [facility] [place] Organization Unknown Address [address] [place] [address] [place] [address] Phone [phone] Problems Active Problems Provider Date Asthma without status asthmaticus Onset: Social History Type Date Description Comments Sex Unknown ETOH Use Denies alcohol use Tobacco Use Start: Unknown Patient is a current smoker, smo kes some days Tobacco Use Start: Unknown The Patient Has Never Vaped Smoking Status Reviewed: 11/17/20 The Patient Has Never Vaped Allergies, Adverse Reactions, Alerts Active Allergies Criticality Reaction | Severity Comments Date NKDA Unable to assess criticality 05/28/2012 Environmental Unable to assess criticality Watery Eyes ,Stuffy Nose 05/28/2012 Medications Active Medications SIG Qnty Indications Ordering Provide r Date Nitrofurantoin Monohyd Macro 100mg Capsules take one tablet by mouth twice a day x 7 days 14caps R3 0.0 Yahir Mcgrath JR., M.D. 11/17/2020 Phenazopyridine HCL 200mg Tablets take one tab by mouth three times a day x 2 days 6tabs R30.0 Yahir Mcgrath JR., M.D. 11/17/2020 Nexplanon 05/2020 Unknown Immunizations Description No Information Available Vital Signs Date Vital Result Comment 11/17/2020 6:45pm BP Systolic 130 mmHg BP Diastolic 86 mmHg Heart Rate 96 /min Respiratory Rate 16 /min O2 % BldC Oximetry 97 % Body Temperature 98.3 F Weight 280.00 lb Height 66 inches 5'6" BMI (Body Mass Index) 45.2 kg/m2 Pain Level 6 09/01/2014 3:42pm BP Systolic 140 mmHg BP Diastolic 95 mmHg Heart Rate 71 /min O2 % BldC Oximetry 99 % Body Temperature 97.3 F Height 66 inches 5'6" Pain Level 7 Results Test Acquired Date Facility Test Result H/L Range Note Laboratory test finding 11/17/2020 [facility] [address] [place] [address] [phone] Urine Culture FULL REPORT IN L <SEE NOTE> Normal 1 1 FULL REPORT IN LAB NOTES (eC W and [facility]). SPECIMEN APPEARS CONTAMINATED Procedures Date Code Description Status 11/17/2020 [address] Office/Outpatient [facility] 30 -44 Minutes Completed Medical Devices Description No Information Available Encounters Type Date Location Provider Dx Diagnosis Office Visit 11/17/2020 6:30p Main Office KAREN Hoff R30 .0 Dysuria Assessments Date Code Description Provider 11/17/2020 R30.0 Dysuria KAREN Lui Plan of Treatment No Information Available Functional Status Description No Information Available Mental Status Description No Information Available Referrals Description No Information Available
--- OUTSIDE RECORDS SUMMARY | 2021-01-17 18:11 | CCD | Continuity of Care Document ---
Author Author [facility] [place] Organization Unknown Address [address] [place] [address] [place] [address] Phone [phone] Problems Active Problems Provider Date Asthma without [...] H/L Range Note Laboratory test finding 11/17/2020 [facility] [address] [place] [address] [phone] Urine Culture <pending> Procedures Date Code Description Status 11/17/2020 09792 Office/Outpatient [facility] 30 -44 Minutes Completed Medical Devices Description [...]
--- OUTSIDE RECORDS SUMMARY | 2021-01-17 18:11 | CCD | Continuity of Care Document ---
Author Author [facility]ell [facility] MD Organization Unknown Address [address] [place] [address] Phone [phone] Care Team Providers Care Senior Occupational Therapist Name Role Phone Jose Cosby MD [facility] [phone] Trev Mart PA-C [facility] Unavailable Problems Description No Information Available Social History Type Date Description Comments Sex Unknown ETOH Use Rarely consumes alcohol Tobacco Use Start: Unknown Patient is a current smoker, smo kes every day Allergies and adverse reactions Description No Known Drug Allergies Medications Active Medications SIG Qnty Indications Ordering Provide r Date Oxycodone HCL 5mg Tablets 1 tablet by mouth every 4 to 6 hours as needed for pain./please do not fill until 06/07/18 20tabs Natalie Jerome MD 06/07/2018 Ibuprofen 200 200mg Tablets 1-2 tabs by mouth four times a day Unknown 0 Immunizations Description No Information Available Vital Signs Date Vital Result Comment 07/03/2018 10:28am Body Temperature 97.8 F 05/07/2018 2:08pm Body Temperature 96.5 F Height 66 inches 5'6" Weight 262.25 lb BMI (Body Mass Index) 42.3 kg/m2 Results Description No Information Available Procedures Description No Information Available Medical Devices Description No Information Available Encounters Description No Information Available Assessments Description No Information Available Plan of Treatment 07/03/2018 - Natalie Jerome MD* T84.84xD Pain due to internal orthopedic prosthetic devices, implants and grafts, subsequent encounter * S93.322S Subluxation of tarsometatarsal joint of left foot, sequela * S93.312S Subluxation of tarsal joint of left foot, sequela * S93.325S Dislocation of tarsometatarsal joint of left foot, sequela* Follow up:* F/U IN 3-4 MONTHS WITH XRAY LEFT FOOT WB Functional Status Description No Information Available Mental Status Description No Information Available Referrals Description No Information Available
--- OUTSIDE RECORDS SUMMARY | 2021-01-17 18:11 | CCD | Continuity of Care Document ---
Author Author Maribell J[facility] MD Organization Unknown Address [address] [place] [address] Phone [phone] Care Team Providers Care Slice Plug Cutter Operator Helper Name Role Phone Jose Cosby MD [facility] [phone] Trev Mart PA-C [facility] Unavailable Problems Description [...]
--- OUTSIDE RECORDS SUMMARY | 2021-01-17 18:11 | CCD | Continuity of Care Document ---
Author Author [facility]ell [facility] [place] Organization Unknown Address [address] [place] [address] [place] [address] Phone [phone] Problems Active Problems Provider Date Asthma without [...] H/L Range Note Laboratory test finding 11/17/2020 [facility] [address] [place] [address] [phone] Urine Culture <pending> Procedures Date Code Description Status 11/17/2020 [address]456 Office/Outpatient [facility]DM 30 -44 Minutes [...]
--- OUTSIDE RECORDS SUMMARY | 2021-01-17 18:12 | CCD ---
Author Author [facility] Organization [facility] Address Unknown Phone Unavailable Care Team Providers Care Customer Engineering Specialist Name Role Phone ZAID, George JONES Unavailable Unavailable LETTIERE, George JONES Unavailable Unavailable LETTIERE, George JONES Unavailable Unavailable LETTIERE, George JONES Unavailable Unavailable LETTIERE, Georeg JONES Unavailable Unavailable LETTIERE, George JONES Unavailable Unavailable LETTIERE, George JONES Unavailable Unavailable LETTIERE, George JONES Unavailable Unavailable LETTIERE, George JONES Unavailable Unavailable LETTIERE, George JONES Unavailable Unavailable LETTIERE, George JONES Unavailable Unavailable LETTIERE, George JONES Unavailable Unavailable LETTIERE, George JONES Unavailable Unavailable LETTIERE, George JONES Unavailable Unavailable LETTIERE, George JONES Unavailable Unavailable LETTIERE, Georeg JONES Unavailable Unavailable LETTIERE, George JONES Unavailable Unavailable LETTIERE, George JONES Unavailable Unavailable LETTIERE, George JONES Unavailable Unavailable LETTIERE, George JONES Unavailable Unavailable LETTIERE, George JONES Unavailable Unavailable LETTIERE, George JONES Unavailable Unavailable LETTIERE, George JONES Unavailable Unavailable LETTIERE, George JONES Unavailable Unavailable LETTIERE, A MAGNO PA Unavailable Unavailable LETTIERE, A MAGNO PA Unavailable Unavailable LETTIERE, A MAGNO PA Unavailable Unavailable LETTIERE, A MAGNO PA Unavailable Unavailable LETTIERE, A MAGNO PA Unavailable Unavailable LETTIERE, A MAGNO PA Unavailable Unavailable LETTIERE, A MAGNO PA Unavailable Unavailable Re-disclosure Warning The records that you [...] is protected by Article 27-F of the [facility] Public Health law. If you continue you may have access to information: Regarding HIV / AIDS; Provided by facilities licensed or operated by the [facility] Office of Mental Health; or Provided by the [facility] Office for People With Developmental Disabilities. If such information is present, then the following [facility] mandated warning applies: This information has been [...] law may result in a fine or retirement sentence or both. A general authorization for the release of medical or other information is NOT sufficient authorization for further disc losure. Family History Family Member Name Family Member Gender Family Member Status Date o f Status Description Data Source(s) Unknown Male Problem MEDENT ([facility]) Unknown Unknown Encounters Encounter Providers Location Date Indications Data Source(s ) [place] [address] [facility] [address] 11/19/2020 12:00:00 AM EDT eCW1 ([facility]) Outpatient Attender: MAGNO charles 11/17/2020 06:30:00 PM EDT MEDENT ([facility]) Unknown [address] [facility] [place] [address] 08/19/2020 12:00:00 AM EDT eCW1 ([facility]) (WC PROC) [facility] Procedure [address] [place] [address] 08/04/2020 12:00:00 AM EDT eCW1 ([facility]) Outpatient [address] [facility] [place] [address] 07/17/2020 12:00:00 AM EDT eCW1 ([facility]) ( ESTOB) [facility] Est OB [address] [place] [address] 04/10/2020 12:00:00 AM EST eCW1 ([facility]) ( ESTOB) [facility] Est OB [address] [place] [address] 03/31/2020 12:00:00 AM EST eCW1 ([facility]) ( ESTOB) [facility] Est OB [address] [place] [address] 03/17/2020 12:00:00 AM EST eCW1 ([facility]) ( ESTOB) [facility] Est OB [address] [place] [address] 03/10/2020 12:00:00 AM EST eCW1 ([facility]) ( ESTOB) [facility] Est OB [address] [place] [address] 02/25/2020 12:00:00 AM EST eCW1 ([facility]) ( ESTOB) [facility] Est OB [address] [place] [address] 01/28/2020 12:00:00 AM EST eCW1 ([facility]) ( ESTOB) WCenter Est OB [address] [place] [address] 01/09/2020 12:00:00 AM EDT eCW1 ([facility]) [place] [address] [facility] [address] 01/08/2020 12:00:00 AM EDT eCW1 ([facility]) Immunizations Vaccine Date Status Description Data Source(s) Tdap 01/28/2020 03:55:00 PM EST completed e CW1 ([facility]) Tdap 01/28/2020 03:55:00 PM EST completed e CW1 ([facility]) Tdap 01/28/2020 03:55:00 PM EST completed e CW1 ([facility]) Tdap 01/28/2020 03:55:00 PM EST completed e CW1 ([facility]) Tdap 01/28/2020 03:55:00 PM EST completed e CW1 ([facility]) Tdap 01/28/2020 03:55:00 PM EST completed e CW1 ([facility]) Tdap 01/28/2020 03:55:00 PM EST completed e CW1 ([facility]) Tdap 01/28/2020 03:55:00 PM EST completed e CW1 ([facility]) Tdap 01/28/2020 03:55:00 PM EST completed e CW1 ([facility]) Tdap 01/28/2020 03:55:00 PM EST completed e CW1 ([facility]) Tdap 01/28/2020 03:55:00 PM EST completed e CW1 ([facility]) Tdap 01/28/2020 03:55:00 PM EST completed e CW1 ([facility]) Medications Medication Brand Name Start Date Product Form Dose Route Admi nistrative Instructions Pharmacy Instructions Status Indications Reaction Description Data Source(s) NITROFURANTOIN, MACROCRYSTALS 25 MG / Ni trofurantoin, Monohydrate 75 MG Oral Capsule 100 mg NITROFURANTOIN MONOHYD/M-CRYST 11/17/2020 12:00:00 AM EDT ca psule 14 TAKE ONE CAPSULE BY MOUTH TWICE A DAY WITH FOOD FOR 7 DAYS TAKE ONE CAPSULE BY MOUTH TWICE A DAY WITH FOOD FOR 7 DAYS SOLD: 11/17/2020 [facility] Phenazopyridine hydrochloride 200 MG Delayed Release O ral Tablet Phenazopyridine HCL 11/17/2020 12:00:00 AM EDT ORAL active MEDENT ([facility]) NITROFURANTOIN, MACROCRYSTALS 25 MG / Ni trofurantoin, Monohydrate 75 MG Oral Capsule Nitrofurantoin Monohyd Macro 11/17/2020 12:00:00 AM EDT ORAL active MEDENT ([facility]) 200 mg 11/17/2020 12:00:00 AM EDT tablet 6 TAKE ONE TABLET BY MOUTH THREE TIMES A DAY WITH FOOD FOR 2 DAYS TAKE ONE TABLET BY MOUTH THREE TIMES A D AY WITH FOOD FOR 2 DAYS SOLD: 11/17/2020 [facility] 300 mg 08/19/2020 12:00:00 AM EDT capsule 20 TAKE ONE CAPSULE BY MOUTH TWICE A DAY TAKE ONE CAPSULE BY MOUTH TWICE A DAY SOLD: 08/19/2020 [facility] 325 mg 08/19/2020 12:00:00 AM EDT tablet 30 TAKE 2 TABLETS (650 MG) BY MOUTH EVERY 6 HOURS NEEDED FOR PAIN / FEVER TAKE 2 TABLETS (650 MG) BY MOUTH EVERY 6 HOURS NEEDED FOR PAIN / FEVER SOLD: 08/19/2020 [facility] Sertraline 50 MG Oral Tablet [Zoloft] Zoloft 50 MG Zoloft 50 MG 07/17/2020 12:00:00 AM EDT 1.0 {tablet} active Zo loft 50 MG eCW1 ([facility]) Sertraline 50 MG Oral Tablet [Zoloft] Zoloft 50 MG Zoloft 50 MG 07/17/2020 12:00:00 AM EDT 1.0 {tablet} active Zo loft 50 MG eCW1 ([facility]) Sertraline 50 MG Oral Tablet [Zoloft] Zoloft 50 MG Zoloft 50 MG 07/17/2020 12:00:00 AM EDT 1.0 {tablet} active Zo loft 50 MG eCW1 ([facility]) Sertraline 50 MG Oral Tablet [Zoloft] Zoloft 50 MG Zoloft 50 MG 07/17/2020 12:00:00 AM EDT 1.0 {tablet} active Zo loft 50 MG eCW1 ([facility]) 50 mg 07/17/2020 12:00:00 AM EDT tablet 30 TAKE ONE TABLET BY MOUTH EVERY DAY TAKE ONE TABLET BY MOUTH EVERY DAY SOLD: 07/17/2020 [facility] 50 mg 07/17/2020 12:00:00 AM EDT tablet 30 TAKE ONE TABLET BY MOUTH EVERY DAY TAKE ONE TABLET BY MOUTH EVERY DAY SOLD: 08/27/2020 [facility] 5-325 mg 05/27/2020 12:00:00 AM EST tablet 16 TAKE ONE TABLET BY MOUTH EVERY 6 HOURS NEEDED FOR PAIN MAXIMUM DAILY DOSE = FOUR TABLETS TAKE ONE TABLET BY MOUTH EVERY 6 HOURS NEEDED FOR PAIN MAXIMUM DAILY DOSE = FOUR TABLETS SOLD: 05/27/2020 [facility] 300 mg 05/13/2020 12:00:00 AM EST capsule 28 TAKE ONE CAPSULE BY MOUTH EVERY 6 HOURS TAKE ONE CAPSULE BY MOUTH EVERY 6 HOURS SOLD: 05/14/2020 [facility] 800 mg 05/13/2020 12:00:00 AM EST tablet 20 TAKE ONE TABLET BY MOUTH EVERY 6 TO 8 HOURS WITH FOOD NEEDED FOR PAIN TAKE ONE TABLET BY MOUTH EVERY 6 TO 8 HOURS WITH FOOD NEEDED FOR PAIN SOLD: 05/14/2020 [facility] Cyclobenzaprine hydrochloride 10 MG Oral Tablet CYCLOBENZAPR INE HCL 02/21/2020 12:00:00 AM EST tablet 20 TAKE ONE TABLET BY MOUTH THREE TIMES A DAY NEEDED FOR MUSCLE SPASMS TAKE ONE TABLET BY MOUTH THREE TIMES A D AY NEEDED FOR MUSCLE SPASMS SOLD: 02/21/2020 [facility] NITROFURANTOIN, MACROCRYSTALS 25 MG / Ni trofurantoin, Monohydrate 75 MG Oral Capsule [Macrobid] Macrobid 100 MG Macrobid 100 MG 01/08/2020 12:00:00 AM EDT suspended Macrobid 100 MG eCW1 ( [facility]) NITROFURANTOIN, MACROCRYSTALS 25 MG / Ni trofurantoin, Monohydrate 75 MG Oral Capsule [Macrobid] Macrobid 100 MG Macrobid 100 MG 01/08/2020 12:00:00 AM EDT suspended Macrobid 100 MG eCW1 ( [facility]) NITROFURANTOIN, MACROCRYSTALS 25 MG / Ni trofurantoin, Monohydrate 75 MG Oral Capsule [Macrobid] Macrobid 100 MG Macrobid 100 MG 01/08/2020 12:00:00 AM EDT active Macrobid 100 MG eCW1 ([facility]) Insurance Providers Payer name Policy type / Coverage type Policy ID Covered republican ID Covered republican's relationship to polanco Policy Polanco Plan Information [place] Med[place] Part B [id number] Family Dependent [id number] BS Idania Hmo Blue Option Medigap Part B [id number] Family Dependent V [id number] BS Idania Hmo Blue Option Medigap Part B [id number] Family Dependent V [id number] BS Idania Hmo Blue Option Medigap Part B [id number] Family Dependent V [id number] BS Idania Hmo Blue Option Medigap Part B [id number] Family Dependent V [id number] BS Idania Hmo Blue Option Medigap Part B [id number] Family Dependent V [id number] BS Idania Hmo Blue Option Medigap Part B [id number] Family Dependent V [id number] BS Idania Hmo Blue Option Medigap Part B [id number] Family Dependent V [id number] BS Idania Hmo Blue Option Medigap Part B [id number] Family Dependent V [id number] BS Idania Hmo Blue Option Medigap Part B [id number] Family Dependent V [id number] BS Idania Hmo Blue Option Medigap Part B [id number] Family Dependent V [id number] BS Idania Hmo Blue Option Medigap Part B [id number] Family Dependent V [id number] BS Idania Hmo Blue Option Medigap Part B [id number] Family Dependent [id number] BS Idania Hmo Blue Option Medigap Part B [id number] Family Dependent V [id number] BS Idania Hmo Blue Option Medigap Part B [id number] Family Dependent V [id number] BS Idania Hmo Blue Option Medigap Part B [id number] Family Dependent V [id number] BS Idania Hmo Blue Option Medigap Part B [id number] Family Dependent V [id number] BS Idania Hmo Blue Option Medigap Part B [id number] Family Dependent V [id number] BS Idania Hmo Blue Option Medigap Part B [id number] Family Dependent V [id number] BS Idania Hmo Blue Option Medigap Part B [id number] Family Dependent V [id number] BS Idania Hmo Blue Option Medigap Part B [id number] Family Dependent V [id number] Managed Care - Community Plan [facility] P [id number] S [id number] Managed Care - Community Plan [facility] P [id number] S [id number] Medicaid S [id number] S [id number] Managed Care - [facility] Community Plan P [id number] S [id number] Managed Care - Community Plan [facility] P [id number] S [id number] [facility] COMMUNITY PLAN [facility] [id number] SP [id number] [facility] Community [facility] Commercial [id number] Self [id number] [facility](MCAID) O [id number] S [id number] HMO BLUE [id number] SP [id number] [employer] P [id number] S [id number] [id number] [facility] COMMUNITY PLAN MCDO 00 SP 00 [facility](MCAID) P [id number] S [id number] [facility]Community 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, antepartum Problem 03/17/2020 12:00:00 AM EST eCW1 ([facility]) E66.01 Morbid obesity Morbid (severe) obesity due to excess c alories Problem 01/28/2020 12:00:00 AM EST eCW1 ([facility]) O99.213 Obesity complicating , third tr imester Obesity complicating in third trimester Problem 01/28/2020 12:00:00 AM EST eCW1 ([facility]) Surgeries/Procedures Procedure Description Date Indications Data Source(s) OFFICE OUTPATIENT NEW 30 MINUTES 11/17/2020 12:00:00 A M EDT MEDENT ([facility]) Etonogestrel (contraceptive) implant system, including impla nt and supplies 08/04/2020 12:00:00 AM EDT eCW1 ([facility]) Medication: 2% Lidocaine intradermal 08/04/2020 12:00: 00 AM EDT eCW1 ([facility]) Test, Urine 08/04/2020 12:00:00 AM EDT eCW1 ([facility]) NONSTRESS TEST 03/31/2020 12:00:00 AM EST eCW1 ([facility]) Immunization: Boostrix 0.5mL IM (TDAP) 01/28/2020 12:0 0:00 AM EST eCW1 ([facility]) Results ID Date Data Source [id number] 11/17/2020 06:57:00 PM EDT MEDENT ([facility]) Name Value Range Interpretation Code Description Data Miroslava rce(s) Supporting Document(s) Bacteria identified in Urine by Culture Laboratory test result MEDENT ([facility]) FULL REPORT IN LAB NOTES (eCW and Medent ). SPECIMEN APPEARS CONTAMINATED ID Date Data Source [id number] 08/19/2020 04:05:00 PM EDT [facility] Name Value Range Interpretation Code Description Data Miroslava rce(s) Supporting Document(s) SARS coronavirus 2 RNA [Presence] in Res piratory specimen by KATLYN with probe detection NEGATIVE [facility] This lab was ordered by [facility] a nd reported by [facility]. ID Date Data Source CBC - Complete Blood Count 01/01/2020 03:52:37 AM EDT eCW1 ( [facility]) Name Value Range Interpretation Code Description Data Miroslava rce(s) Supporting Document(s) 8.8 eCW1 (Pending sale to [facility]) 4.10 eCW1 (Pending sale to [facility]) 36.5 eCW1 (Pending sale to [facility]) 12.1 eCW1 (Pending sale to [facility]) 89.0 eCW1 (Pending sale to [facility]) 14.3 eCW1 (Pending sale to [facility]) 29.5 eCW1 (Pending sale to [facility]) 33.2 eCW1 (Pending sale to [facility]) 290 eCW1 (Pending sale to [facility]) ID Date Data Source CHLAMYDIA & GC DNA AMPLIFICAT 01/01/2020 03:52:29 AM EDT eCW 1 ([facility]) Name Value Range Interpretation Code Description Data Miroslava rce(s) Supporting Document(s) Chlamydia trachomatis rRNA [Presence] in Unspecified specimen by Probe and target amplification method NEGATIVE eCW1 ([facility]) ID Date Data Source WWBC OBS COMPLETE US 01/01/2020 03:42:26 AM EDT eCW1 ([facility]) Name Value Range Interpretation Code Description Data Miroslava rce(s) Supporting Document(s) WWBC OBS COMPLETE US eCW1 ([facility]) Procedure Social History Code Duration Value Status Description Data Source(s ) Smoking 08/19/2020 12:00:00 AM EDT Current Smoker completed Curre nt Smoker eCW1 ([facility]) Smoking 08/19/2020 12:00:00 AM EDT Current Smoker completed Curre nt Smoker eCW1 ([facility]) Smoking 08/19/2020 12:00:00 AM EDT Current Smoker completed Curre nt Smoker eCW1 ([facility]) Smoking 07/16/2020 12:00:00 AM EDT Current Smoker completed Curre nt Smoker eCW1 ([facility]) Smoking 04/09/2020 12:00:00 AM EST Current Smoker completed Curre nt Smoker eCW1 ([facility]) Smoking 03/31/2020 12:00:00 AM EST Current Smoker completed Curre nt Smoker eCW1 ([facility]) Smoking 03/16/2020 12:00:00 AM EST Current Smoker completed Curre nt Smoker eCW1 ([facility]) Smoking 03/16/2020 12:00:00 AM EST Current Smoker completed Curre nt Smoker eCW1 ([facility]) Smoking 02/24/2020 12:00:00 AM EST Current Smoker completed Curre nt Smoker eCW1 ([facility]) Smoking 02/24/2020 12:00:00 AM EST Current Smoker completed Curre nt Smoker eCW1 ([facility]) Smoking 01/28/2020 12:00:00 AM EST Current Smoker completed Curre nt Smoker eCW1 ([facility]) Smoking 01/28/2020 12:00:00 AM EST Current Smoker completed Curre nt Smoker eCW1 ([facility]) Vital Signs ID Date Data Source UNK Name Value Range Interpretation Code Description Data Source(s) Body mass index (BMI) [Ratio] 45.2 kg/m2 45.2 k g/m2 [facility] Body height 66 [in_i] 66 [in_i] [facility] ([facility]) 5'6" Body weight 280.00 [lb_av] 280.00 [lb_av] MEDEN T ([facility]) Body temperature 98.3 [degF] 98.3 [degF] [facility] Oxygen saturation in Arterial blood by Pulse oximetry 97 % 97 % [facility] ([facility]) Respiratory rate 16 /min 16 /min [facility] ( [facility]) Heart rate 96 /min 96 /min [facility] ([facility]) Diastolic blood pressure 86 mm[Hg] 86 mm[Hg] [facility]) Systolic blood pressure 130 mm[Hg] 130 mm[Hg] M EDSAMIRA ([facility], [facility]) Diastolic blood pressure 92 mm[Hg] 92 mm[Hg] eCW1 ([facility]) Systolic blood pressure 132 mm[Hg] 132 mm[Hg] e CW1 ([facility]) Body mass index (BMI) [Ratio] 45.35 kg/m2 45.35 kg/m2 eCW1 ([facility]) Body height 66 [in_i] 66 [in_i] eCW1 ([facility]) Body weight 281 [lb_av] 281 [lb_av] eCW1 ([facility]) Diastolic blood pressure 78 mm[Hg] 78 mm[Hg] eCW1 ([facility]) Systolic blood pressure 108 mm[Hg] 108 mm[Hg] e CW1 ([facility]) Body mass index (BMI) [Ratio] 46.8 kg/m2 46.8 k g/m2 eCW1 ([facility]) Body height 66 [in_i] 66 [in_i] eCW1 ([facility]) Body weight 131.54 kg 131.54 kg eCW1 ([facility]) Body weight 290.0 [lb_av] 290.0 [lb_av] eCW1 ([facility]) Diastolic blood pressure 80 mm[Hg] 80 mm[Hg] eCW1 ([facility]) Systolic blood pressure 126 mm[Hg] 126 mm[Hg] e CW1 ([facility]) Body mass index (BMI) [Ratio] 50.455 kg/m2 50.4 55 kg/m2 eCW1 ([facility]) Body height 66 [in_i] 66 [in_i] eCW1 ([facility]) Body weight 141.79 kg 141.79 kg eCW1 ([facility]) Body weight 312.6 [lb_av] 312.6 [lb_av] eCW1 ([facility]) Diastolic blood pressure 84 mm[Hg] 84 mm[Hg] eCW1 ([facility]) Systolic blood pressure 120 mm[Hg] 120 mm[Hg] e CW1 ([facility]) Body mass index (BMI) [Ratio] 48.357 kg/m2 48.3 57 kg/m2 eCW1 ([facility]) Body height 66 [in_i] 66 [in_i] eCW1 ([facility]) Body weight 135.9 kg 135.9 kg eCW1 ([facility]) Body weight 299.6 [lb_av] 299.6 [lb_av] eCW1 ([facility]) Body mass index (BMI) [Ratio] 48.389 kg/m2 48.3 89 kg/m2 eCW1 ([facility]) Diastolic blood pressure 80 mm[Hg] 80 mm[Hg] eCW1 ([facility]) Systolic blood pressure 128 mm[Hg] 128 mm[Hg] e CW1 ([facility]) Body height 66 [in_i] 66 [in_i] eCW1 ([facility]) Body weight 299.8 [lb_av] 299.8 [lb_av] eCW1 ([facility]) Systolic blood pressure 128 mm[Hg] 128 mm[Hg] e CW1 ([facility]) Diastolic blood pressure 78 mm[Hg] 78 mm[Hg] eCW1 ([facility]) Body mass index (BMI) [Ratio] 47.647 kg/m2 47.6 47 kg/m2 eCW1 ([facility]) Body height 66 [in_i] 66 [in_i] eCW1 ([facility]) Body weight 295.2 [lb_av] 295.2 [lb_av] eCW1 ([facility]) Diastolic blood pressure 76 mm[Hg] 76 mm[Hg] eCW1 ([facility]) Systolic blood pressure 130 mm[Hg] 130 mm[Hg] e CW1 ([facility]) Body mass index (BMI) [Ratio] 45.839 kg/m2 45.8 39 kg/m2 eCW1 ([facility]) Body height 66 [in_i] 66 [in_i] eCW1 ([facility]) Body weight 284 [lb_av] 284 [lb_av] eCW1 ([facility]) Body weight 280.8 [lb_av] 280.8 [lb_av] eCW1 ([facility]) Diastolic blood pressure 72 mm[Hg] 72 mm[Hg] eCW1 ([facility]) Systolic blood pressure 120 mm[Hg] 120 mm[Hg] e CW1 ([facility]) Body mass index (BMI) [Ratio] 45.322 kg/m2 45.3 22 kg/m2 eCW1 ([facility]) Body height 66 [in_i] 66 [in_i] eCW1 ([facility]) Body weight 127.37 kg 127.37 kg W1 ([facility]) Patient Treatment Plan of Care Planned Activity Planned Date Details Description Data Source (s) Sertraline 50 MG Oral Tablet [Zoloft] 07/17/2020 12:00:00 AM EDT eCW1 ([facility]) NITROFURANTOIN, MACROCRYSTALS 25 MG / Ni trofurantoin, Monohydrate 75 MG Oral Capsule [Macrobid] 01/08/2020 12:00:00 AM EDT eC W1 ([facility])
[2021-01-17] MEDS ORDERED: LIDOCAINE 5% (LIDODERM) PATCH TD ONE (18:25)
--- OUTSIDE RECORDS SUMMARY | 2021-01-17 18:47 | CCD ---
Author Author [facility] Organization [facility] Address Unknown Phone Unavailable Care Team Providers Care Sas Programmer Remote Name Role Phone ZAID, George JONES Unavailable [...] is protected by Article 27-F of the [facility] Public Health law. If you continue you may have access to information: Regarding HIV / AIDS; Provided by facilities licensed or operated by the [facility] Office of Mental Health; or Provided by the [facility] Office for People With Developmental Disabilities. If such information is present, then the following [facility] mandated warning applies: This information has [...] law may result in a fine or care home sentence or both. A general authorization for the release of medical or other information is NOT sufficient authorization for further disc losure. Family History Family Member Name Family Member Gender Family Member Status Date o f Status Description Data Source(s) Unknown Male Problem MEDENT ([facility]) Unknown Unknown Encounters Encounter Providers Location Date Indications Data Source(s ) Unknown [address] [facility] [address] 11/19/2020 12:00:00 AM EDT eCW1 ([facility]) Outpatient Attender: MAGNO charles 11/17/2020 06:30:00 PM EDT MEDENT ([facility]) Unknown [address] [facility] [place] [address] 08/19/2020 12:00:00 AM EDT eCW1 ([facility]) (WC PROC) WCenter Procedure [address] [place] [address] 08/04/2020 12:00:00 AM EDT eCW1 ([facility]) Outpatient [address] [facility] [place] [address] 07/17/2020 12:00:00 AM EDT eCW1 ([facility]) ( ESTOB) WCenter Est OB [address] [place] [address] 04/10/2020 12:00:00 AM EST eCW1 ([facility]) ( ESTOB) [facility] Est OB [address] [place] [address] 03/31/2020 12:00:00 AM EST eCW1 ([facility]) ( ESTOB) [facility] Est OB [address] [place] [address] 03/17/2020 12:00:00 AM EST eCW1 ([facility]) ( ESTOB) [facility]Center Est OB [address] [place] [address] 03/10/2020 12:00:00 AM EST eCW1 ([facility]) ( ESTOB) [facility]Center Est OB [address] [place] [address] 02/25/2020 12:00:00 AM EST eCW1 ([facility]) ( ESTOB) WCenter Est OB [address] [place] [address] 01/28/2020 12:00:00 AM EST eCW1 ([facility]) ( ESTOB) WCenter Est OB [address] [place] [address] 01/09/2020 12:00:00 AM EDT eCW1 ([facility]) Unknown [address] [facility] [address] 01/08/2020 12:00:00 AM EDT eCW1 ([facility]) Immunizations Vaccine Date Status Description Data Source(s) Tdap 01/28/2020 03:55:00 PM EST completed e CW1 ([facility]) Tdap 01/28/2020 03:55:00 PM EST completed e CW1 ([facility]) Tdap 01/28/2020 03:55:00 PM EST completed e CW1 ([facility]) Tdap 01/28/2020 03:55:00 PM EST completed e CW1 ([facility]) Tdap 01/28/2020 03:55:00 PM EST completed e CW1 ([facility]) Tdap 01/28/2020 03:55:00 PM EST completed e CW1 ([facility]) Tdap 01/28/2020 03:55:00 PM EST completed e CW1 ([facility]) Tdap 01/28/2020 03:55:00 PM EST completed e CW1 ([facility]) Tdap 01/28/2020 03:55:00 PM EST completed e CW1 ([facility]) Tdap 01/28/2020 03:55:00 PM EST completed e CW1 ([facility]) Tdap 01/28/2020 03:55:00 PM EST completed e CW1 ([facility]) Tdap 01/28/2020 03:55:00 PM EST completed e CW1 ([facility]) Medications Medication Brand Name Start Date Product [...] 12:00:00 AM EDT ORAL active MEDENT ([facility], [facility]) NITROFURANTOIN, MACROCRYSTALS 25 MG / Ni trofurantoin, Monohydrate 75 MG Oral Capsule Nitrofurantoin Monohyd Macro 11/17/2020 12:00:00 AM EDT ORAL active MEDENT ([facility]) 200 mg 11/17/2020 12:00:00 AM EDT tablet [...] {tablet} active Zo loft 50 MG eCW1 ([facility]) Sertraline 50 MG Oral Tablet [Zoloft] Zoloft 50 MG Zoloft 50 MG 07/17/2020 12:00:00 AM EDT 1.0 {tablet} active Zo loft 50 MG eCW1 ([facility]) Sertraline 50 MG Oral Tablet [Zoloft] Zoloft 50 MG Zoloft 50 MG 07/17/2020 12:00:00 AM EDT 1.0 {tablet} active Zo loft 50 MG eCW1 ([facility]) Sertraline 50 MG Oral Tablet [Zoloft] Zoloft 50 MG Zoloft 50 MG 07/17/2020 12:00:00 AM EDT 1.0 {tablet} active Zo loft 50 MG eCW1 ([facility]) 50 mg 07/17/2020 12:00:00 AM EDT tablet [...] EDT suspended Macrobid 100 MG eCW1 ( [facility]) NITROFURANTOIN, MACROCRYSTALS 25 MG / Ni trofurantoin, Monohydrate 75 MG Oral Capsule [Macrobid] Macrobid 100 MG Macrobid 100 MG 01/08/2020 12:00:00 AM EDT suspended Macrobid 100 MG eCW1 ( [facility]) NITROFURANTOIN, MACROCRYSTALS 25 MG / Ni trofurantoin, Monohydrate 75 MG Oral Capsule [Macrobid] Macrobid 100 MG Macrobid 100 MG 01/08/2020 12:00:00 AM EDT active Macrobid 100 MG eCW1 ([facility]) Insurance Providers Payer name Policy type / Coverage type Policy ID Covered constitution party ID Covered constitution party's relationship to polanco Policy [place] [id number] Family Dependent [id number] BS Idania Hmo Blue Option Medigap Part B [id number] Family Dependent V [id number] BS [place]ania Hmo Blue Option Medigap Part B [id number] [id number] Family Dependent V [id number] BS Idania Hmo Blue Option Medigap Part B [id number] [id number] Family Dependent V [id number] BS Idania Hmo Blue Option Medigap Part B [id number] [id number] Family Dependent V [id number] BS [employer] Hmo Blue Option Medigap Part B [id number] Family Dependent V [id number] BS Idania Hmo Blue Option Medigap Part B [id number] [id number] Family Dependent V [id number] BS [employer]ania Hmo Blue Option Medigap Part B [id number] Family Dependent V [id number] BS Idania Hmo Blue Option Medigap Part B [id number] Family Dependent V [id number] BS [employer]ania Hmo Blue Option Medigap Part B [id number] Family Dependent V [id number] BS Idania Hmo Blue Option Medigap Part B [id number] Family Dependent V [id number] BS Idania Hmo Blue Option Medigap Part B [id number] Family Dependent V [id number] BS Idania Hmo Blue Option Medigap Part B [id number] Family Dependent [id number] BS Idania Hmo Blue Option Medigap Part B [id number] ..[id number] Family Dependent V [id number] BS Idania Hmo Blue Option Medigap Part B [id number] ..[id number] Family Dependent V [id number] BS Idania Hmo Blue Option Medigap Part B [id number] Family Dependent V [id number] BS Idania Hmo Blue Option Medigap Part B [id number] .[id number] Family Dependent V [id number] BS Idania Hmo Blue Option Medigap Part B [id number] Family Dependent V [id number] BS Idania Hmo Blue Option Medigap Part B [id number] .[id number] Family Dependent V [id number] BS Idania Hmo Blue Option Medigap Part B [id number] Family Dependent V [id number] BS Idania Hmo Blue Option Medigap Part B [id number] Family Dependent V [id number] Managed Care - Community Plan [facility] P [id number] S [id number] Managed Care - Community Plan [facility] P [id number] S [id number] Medicaid S [id number] S [id number] Managed Care - [facility] Community Plan P [id number] S [id number] Managed Care - Community Plan [facility] P [id number] S [id number] [facility] COMMUNITY [facility] [id number] SP [id number] [facility] Commercial [id number] Self [id number] [facility](MCAID) O [id number] S [id number] HMO BLUE [id number] SP [id number] [employer] P [id number] S [id number] [facility] COMMUNITY PLAN MCDO [id number] SP 00 [facility](MCAID) P [id number] S [id number] [facility] Health Maintenance Organization (HMO) [id number] Self SELF PAY UNAVAILABLE SP UNAVAILA BLE SELF PAY ONLY UNAVAILABLE UNAV AILABLE UN COMMUNITY PLAN MCDO [id number] SP [id number] SELF PAY ONLY [id number] SP [id number] MEDICAID [id number] SP [id number] [facility] COMMUNITY PLAN MCDO [id number] SP [id number] [facility] COMMUNITY PLAN MCDO [id number] SP [id number] Problems, Conditions, and Diagnoses Code Display Name Description Problem Type Effective Dates Data Source(s) O24.312 Unspecified pre-existing jeanette betes mellitus in , second trimester 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, antepartum Problem 03/17/2020 12:00:00 AM EST eCW1 ([facility]) E66.01 Morbid obesity Morbid (severe) obesity due to excess c alories Problem 01/28/2020 12:00:00 AM EST eCW1 ([facility]) O99.213 Obesity complicating , third tr imester Obesity complicating in third trimester Problem 01/28/2020 12:00:00 AM EST eCW1 ([facility]) Surgeries/Procedures Procedure Description Date Indications Data Source(s) OFFICE OUTPATIENT NEW 30 MINUTES 11/17/2020 12:00:00 A M EDT MEDENT ([facility]) Etonogestrel (contraceptive) implant system, including impla nt and supplies 08/04/2020 12:00:00 AM EDT eCW1 ([facility]) Medication: 2% Lidocaine intradermal 08/04/2020 12:00: 00 AM EDT eCW1 ([facility]) Test, Urine 08/04/2020 12:00:00 AM EDT eCW1 ([facility]) NONSTRESS TEST 03/31/2020 12:00:00 AM EST eCW1 ([facility]) Immunization: Boostrix 0.5mL IM (TDAP) 01/28/2020 12:0 0:00 AM EST eCW1 ([facility]) Results ID Date Data Source [id number] 11/17/2020 06:57:00 PM EDT MEDENT ([facility]) Name Value Range Interpretation Code Description Data Miroslava rce(s) Supporting Document(s) Bacteria identified in Urine by Culture Laboratory test result MEDENT ([facility]) FULL REPORT IN LAB NOTES (eCW and Medent ). SPECIMEN APPEARS CONTAMINATED ID Date Data Source [id number] 08/19/2020 04:05:00 PM EDT [facility] Name Value Range Interpretation Code Description Data Miroslava rce(s) Supporting Document(s) SARS coronavirus 2 RNA [Presence] in Res piratory specimen by KATLYN with probe detection NEGATIVE [facility] This lab was ordered by [facility] a nd reported by [facility]. ID Date Data Source CBC - Complete Blood Count 01/01/2020 03:52:37 AM EDT eCW1 ( [facility]) Name Value Range Interpretation Code Description Data Miroslava rce(s) Supporting Document(s) 8.8 eCW1 ([facility]) 4.10 eCW1 ([facility]) 36.5 eCW1 ([facility]) 12.1 eCW1 ([facility]) 89.0 eCW1 ([facility]) 14.3 eCW1 ([facility]) 29.5 eCW1 ([facility]) 33.2 eCW1 ([facility]) 290 eCW1 ([facility]) ID Date Data Source CHLAMYDIA & GC DNA AMPLIFICAT 01/01/2020 03:52:29 AM EDT eCW 1 ([facility]) Name Value Range Interpretation Code Description Data Miroslava rce(s) Supporting Document(s) Chlamydia trachomatis rRNA [Presence] in Unspecified specimen by Probe and target amplification method NEGATIVE eCW1 ([facility]) ID Date Data Source WWBC OBS COMPLETE US 01/01/2020 03:42:26 AM EDT eCW1 ([facility]) Name Value Range Interpretation Code Description Data Miroslava rce(s) Supporting Document(s) WWBC OBS COMPLETE US eCW1 ([facility]) Procedure Social History Code Duration Value Status Description Data Source(s ) Smoking 08/19/2020 12:00:00 AM EDT Current Smoker completed Curre nt Smoker eCW1 ([facility]) Smoking 08/19/2020 12:00:00 AM EDT Current Smoker completed Curre nt Smoker eCW1 ([facility]) Smoking 08/19/2020 12:00:00 AM EDT Current Smoker completed Curre nt Smoker eCW1 ([facility]) Smoking 07/16/2020 12:00:00 AM EDT Current Smoker completed Curre nt Smoker eCW1 ([facility]) Smoking 04/09/2020 12:00:00 AM EST Current Smoker completed Curre nt Smoker eCW1 ([facility]) Smoking 03/31/2020 12:00:00 AM EST Current Smoker completed Curre nt Smoker eCW1 ([facility]) Smoking 03/16/2020 12:00:00 AM EST Current Smoker completed Curre nt Smoker eCW1 ([facility]) Smoking 03/16/2020 12:00:00 AM EST Current Smoker completed Curre nt Smoker eCW1 ([facility]) Smoking 02/24/2020 12:00:00 AM EST Current Smoker completed Curre nt Smoker eCW1 ([facility]) Smoking 02/24/2020 12:00:00 AM EST Current Smoker completed Curre nt Smoker eCW1 ([facility]) Smoking 01/28/2020 12:00:00 AM EST Current Smoker completed Curre nt Smoker eCW1 ([facility]) Smoking 01/28/2020 12:00:00 AM EST Current Smoker completed Curre nt Smoker eCW1 ([facility]) Vital Signs ID Date Data Source UNK Name Value Range Interpretation Code Description Data Source(s) Body mass index (BMI) [Ratio] 45.2 kg/m2 45.2 k g/m2 [facility] ([facility]) Body height 66 [in_i] 66 [in_i] [facility] ([facility]) 5'6" Body weight 280.00 [lb_av] 280.00 [lb_av] MEDEN T ([facility]) Body temperature 98.3 [degF] 98.3 [degF] [facility]) Oxygen saturation in Arterial blood by Pulse oximetry 97 % 97 % [facility] ([facility]) Respiratory rate 16 /min 16 /min [facility] ( [facility]) Heart rate 96 /min 96 /min [facility] ([facility]) Diastolic blood pressure 86 mm[Hg] 86 mm[Hg] [facility] Systolic blood pressure 130 mm[Hg] 130 mm[Hg] M EDSAMIRA ([facility]) Diastolic blood pressure 92 mm[Hg] 92 mm[Hg] eCW1 ([facility]) Systolic blood pressure 132 mm[Hg] 132 mm[Hg] e CW1 ([facility]) Body mass index (BMI) [Ratio] 45.35 kg/m2 45.35 kg/m2 eCW1 ([facility]) Body height 66 [in_i] 66 [in_i] eCW1 ([facility]) Body weight 281 [lb_av] 281 [lb_av] eCW1 ([facility]) Diastolic blood pressure 78 mm[Hg] 78 mm[Hg] eCW1 ([facility]) Systolic blood pressure 108 mm[Hg] 108 mm[Hg] e CW1 ([facility]) Body mass index (BMI) [Ratio] 46.8 kg/m2 46.8 k g/m2 eCW1 ([facility]) Body height 66 [in_i] 66 [in_i] eCW1 ([facility]) Body weight 131.54 kg 131.54 kg eCW1 ([facility]) Body weight 290.0 [lb_av] 290.0 [lb_av] eCW1 ([facility]) Diastolic blood pressure 80 mm[Hg] 80 mm[Hg] eCW1 ([facility]) Systolic blood pressure 126 mm[Hg] 126 mm[Hg] e CW1 ([facility]) Body mass index (BMI) [Ratio] 50.455 kg/m2 50.4 55 kg/m2 eCW1 ([facility]) Body height 66 [in_i] 66 [in_i] eCW1 ([facility]) Body weight 141.79 kg 141.79 kg eCW1 ([facility]) Body weight 312.6 [lb_av] 312.6 [lb_av] eCW1 ([facility]) Diastolic blood pressure 84 mm[Hg] 84 mm[Hg] eCW1 ([facility]) Systolic blood pressure 120 mm[Hg] 120 mm[Hg] e CW1 ([facility]) Body mass index (BMI) [Ratio] 48.357 kg/m2 48.3 57 kg/m2 eCW1 ([facility]) Body height 66 [in_i] 66 [in_i] eCW1 ([facility]) Body weight 135.9 kg 135.9 kg eCW1 ([facility]) Body weight 299.6 [lb_av] 299.6 [lb_av] eCW1 ([facility]) Body mass index (BMI) [Ratio] 48.389 kg/m2 48.3 89 kg/m2 eCW1 ([facility]) Diastolic blood pressure 80 mm[Hg] 80 mm[Hg] eCW1 ([facility]) Systolic blood pressure 128 mm[Hg] 128 mm[Hg] e CW1 ([facility]) Body height 66 [in_i] 66 [in_i] eCW1 ([facility]) Body weight 299.8 [lb_av] 299.8 [lb_av] eCW1 ([facility]) Systolic blood pressure 128 mm[Hg] 128 mm[Hg] e CW1 ([facility]) Diastolic blood pressure 78 mm[Hg] 78 mm[Hg] eCW1 ([facility]) Body mass index (BMI) [Ratio] 47.647 kg/m2 47.6 47 kg/m2 eCW1 ([facility]) Body height 66 [in_i] 66 [in_i] eCW1 ([facility]) Body weight 295.2 [lb_av] 295.2 [lb_av] eCW1 ([facility]) Diastolic blood pressure 76 mm[Hg] 76 mm[Hg] eCW1 ([facility]) Systolic blood pressure 130 mm[Hg] 130 mm[Hg] e CW1 ([facility]) Body mass index (BMI) [Ratio] 45.839 kg/m2 45.8 39 kg/m2 eCW1 ([facility]) Body height 66 [in_i] 66 [in_i] eCW1 ([facility]) Body weight 284 [lb_av] 284 [lb_av] eCW1 ([facility]) Body weight 280.8 [lb_av] 280.8 [lb_av] eCW1 ([facility]) Diastolic blood pressure 72 mm[Hg] 72 mm[Hg] eCW1 ([facility]) Systolic blood pressure 120 mm[Hg] 120 mm[Hg] e CW1 ([facility]) Body mass index (BMI) [Ratio] 45.322 kg/m2 45.3 22 kg/m2 eCW1 ([facility]) Body height 66 [in_i] 66 [in_i] eCW1 ([facility]) Body weight 127.37 kg 127.37 kg W1 ([facility]) Patient Treatment Plan of Care Planned Activity Planned Date Details Description Data Source (s) Sertraline 50 MG Oral Tablet [Zoloft] 07/17/2020 12:00:00 AM EDT eCW1 ([facility]) NITROFURANTOIN, MACROCRYSTALS 25 MG / Ni trofurantoin, Monohydrate 75 MG Oral Capsule [Macrobid] 01/08/2020 12:00:00 AM EDT eC W1 ([facility])
[2021-01-17] MEDS ORDERED: **NOTE PATIENT COMMENT** MISC XX SCH (21:00)
== END 2021-01-17 18:39 | disposition left against medical advice (07) ==
LOC: M ED 17:55
DX: R20.2 Paresthesia of skin (principal); F17.200 Nicotine dependence, unspecified, uncomplicated; Z79.3 Long term (current) use of hormonal contraceptives

== ENCOUNTER → 2021-03-05 | Outpatient (REF) | payer OTHER ==
[~2021-03-05] MED LIST changes: -CEFD1CAP8 PO; +CEFD300C41 PO
[2021-03-05 18:42] LABS: RSV AMPLIFICATION NEGATIVE (NEGATIVE)
== END ==
LOC: M LAB REF 16:48
PROVIDERS: ATTEND Physician Assistant
DX: R50.9 Fever, unspecified (principal); R53.83 Other fatigue

== ENCOUNTER → 2021-11-08 | Outpatient (REF) | payer OTHER ==
[~2021-11-08] MED LIST changes: +ETON68IM SC; -NEXP1IMP SC
== END ==
LOC: M LAB REF 21:10
PROVIDERS: ATTEND Physician Assistant
DX: J02.9 Acute pharyngitis, unspecified (principal)

== ENCOUNTER 2022-01-03 11:49 | Emergency (ER) | payer MEDICAID, OTHER, SELFPAY ==
[~2022-01-03] VITALS: Ht 167.6 cm; Wt 109.1 kg
[2022-01-03 12:11] LABS: APPEARANCE, URINE MANUAL CLEAR (CLEAR); COLOR, URINE MANUAL YELLOW (YELLOW); PROTEIN, URINE MANUAL NEGATIVE (NEGATIVE)
[2022-01-03 12:12] LABS: BILIRUBIN, URINE MANUAL NEGATIVE (NEGATIVE); BLOOD URINE MANUAL NEGATIVE (NEGATIVE); GLUCOSE, URINE (UA) MANUAL NEGATIVE (NEGATIVE); KETONE, URINE MANUAL NEGATIVE (NEGATIVE); LEUKOCYTE ESTERASE, URINE MAN TRACE (NEGATIVE); NITRITE, URINE MANUAL NEGATIVE (NEGATIVE); UROBILINOGEN, URINE MANUAL NORMAL (NORMAL)
[2022-01-03 12:21] LABS: BACTERIA, URINE SMALL AMOUNT; HYALINE CAST, URINE NONE SEEN /lpf (0-1); RBC, URINE 0-1 /hpf (0-3); SQUAMOUS EPITHELIAL CELL URINE SMALL AMOUNT /hpf (SMALL AMT)
[2022-01-03] MEDS ORDERED: MACR100C43 PO (13:31)
[2022-01-03 13:39] VITALS: BP 129/75
[2022-01-04] MEDS ORDERED: PREN1CHW6 PO (22:09)
== END 2022-01-03 13:47 | disposition home or self-care (01) ==
LOC: M ED 11:49
DX: O23.41 Unspecified infection of urinary tract in pregnancy, first trimester (principal); F17.200 Nicotine dependence, unspecified, uncomplicated; Z3A.01 Less than 8 weeks gestation of pregnancy

== ENCOUNTER 2022-01-04 21:28 | Emergency (ER) | payer SELFPAY ==
[~2022-01-04] VITALS: Ht 167.6 cm; Wt 109.1 kg
[~2022-01-04 21:28] MED LIST changes: +MACR100C43 PO
[2022-01-04 21:29] VITALS: BP 136/80
[2022-01-04] MEDS ORDERED: PREN1CHW6 PO (22:09)
== END 2022-01-05 02:00 | disposition left against medical advice (07) ==
LOC: M ED 21:28
DX: Z53.21 Procedure and treatment not carried out due to patient leaving prior to being seen by health care provider (principal)

== ENCOUNTER 2022-01-09 10:29 | Emergency (ER) | payer OTHER, SELFPAY ==
[~2022-01-09] VITALS: Ht 167.6 cm; Wt 110.5 kg
[~2022-01-09 10:29] MED LIST changes: +PREN1CHW6 PO
[2022-01-09 11:22] LABS: BASO # 0.1 10^3/uL (0.0-0.2); BASO % 0.9 % (0.0-1.0); EOS # 0.1 10^3/uL (0.0-0.5); EOS % 1.6 % (0.0-3.0); HEMATOCRIT 42.1 % (36.0-47.0); LYMPH # 1.4 10^3/uL (1.5-5.0); LYMPH % 18.5 % (24.0-44.0); MEAN CORPUSCULAR HEMOGLOBIN 29.5 pg (27.0-33.0); MEAN CORPUSCULAR HGB CONC 33.3 g/dl (32.0-36.5); MEAN CORPUSCULAR VOLUME 88.8 fl (80.0-96.0); MONO # 0.5 10^3/uL (0.0-0.8); MONO % 6.1 % (2.0-8.0); NEUTROPHILS # 5.5 10^3/uL (1.5-8.5); NEUTROPHILS % 72.5 % (36.0-66.0); PLATELET COUNT, AUTOMATED 294 10^3/uL (150-450); RED BLOOD COUNT 4.74 10^6/uL (4.00-5.40); WHITE BLOOD COUNT 7.6 10^3/uL (4.0-10.0)
[2022-01-09 12:37] LABS: BLOOD UREA NITROGEN 11 MG/DL (7-18); CARBON DIOXIDE LEVEL 23 MEQ/L (21-32); CHLORIDE LEVEL 111 MEQ/L (98-107); CREATININE FOR GFR 0.68 MG/DL (0.55-1.30); GLOMERULAR FILTRATION RATE > 60.0 (>60); GLUCOSE, FASTING 104 MG/DL (70-100); HCG, SERUM QUANTITATIVE 6096 MIU/ML; POTASSIUM SERUM 3.8 MEQ/L (3.5-5.1); SODIUM LEVEL 140 MEQ/L (136-145)
[2022-01-09 16:50] VITALS: BP 130/65
== END 2022-01-09 16:52 | disposition home or self-care (01) ==
LOC: M ED 10:29
DX: O34.81 Maternal care for other abnormalities of pelvic organs, first trimester (principal); N83.201 Unspecified ovarian cyst, right side; I45.10 Unspecified right bundle-branch block; Z87.891 Personal history of nicotine dependence; Z79.810 Long term (current) use of selective estrogen receptor modulators (SERMs); Z3A.01 Less than 8 weeks gestation of pregnancy

== ENCOUNTER → 2022-02-21 | Outpatient (CLI) | payer OTHER | LOC: M LAB 11:44 | PROVIDERS: ATTEND Obstetrics & Gynecology | DX: Z34.91 Encounter for supervision of normal pregnancy, unspecified, first trimester (principal); Z3A.10 10 weeks gestation of pregnancy ==

== ENCOUNTER → 2022-03-29 | Outpatient (REF) | LOC: M EMP 11:58 | PROVIDERS: ATTEND Family Medicine | DX: Z11.52 Encounter for screening for COVID-19 (principal) ==

== ENCOUNTER → 2022-04-18 | Outpatient (CLI) | payer OTHER ==
[2022-04-18 15:28] LABS: HEMATOCRIT 37.2 % (36.0-47.0); HEMOGLOBIN 11.9 g/dl (12.0-15.5); MEAN CORPUSCULAR VOLUME 93.7 fl (80.0-96.0); PLATELET COUNT, AUTOMATED 280 10^3/uL (150-450); RED BLOOD COUNT 3.97 10^6/uL (4.00-5.40); WHITE BLOOD COUNT 8.6 10^3/uL (4.0-10.0)
[2022-04-18 16:25] LABS: HIV 1&2 SCREEN CENTAUR NEGATIVE (NEGATIVE)
[2022-04-18 17:05] LABS: GC DNA AMPLIFICATION NEGATIVE (NEGATIVE)
== END ==
LOC: M PLALAB 11:20
PROVIDERS: ATTEND Obstetrics & Gynecology
DX: Z34.91 Encounter for supervision of normal pregnancy, unspecified, first trimester (principal); Z3A.00 Weeks of gestation of pregnancy not specified

== ENCOUNTER → 2022-05-05 | Outpatient (CLI) | payer OTHER ==
[~2022-05-05] MED LIST changes: +LIDO15SO4 PO; -LIDO2SOL17 PO
== END ==
LOC: M WHC 12:54
PROVIDERS: ATTEND Obstetrics & Gynecology
DX: Z34.82 Encounter for supervision of other normal pregnancy, second trimester (principal); Z3A.22 22 weeks gestation of pregnancy

== ENCOUNTER → 2022-06-01 | Outpatient (CLI) | payer OTHER | LOC: M WHC 09:27 | PROVIDERS: ATTEND Obstetrics & Gynecology | DX: Z36.2 Encounter for other antenatal screening follow-up (principal) ==

== ENCOUNTER → 2022-06-10 | Outpatient (CLI) | payer OTHER ==
[2022-06-10 13:36] LABS: HEMATOCRIT 37.9 % (36.0-47.0); HEMOGLOBIN 12.1 g/dl (12.0-15.5); MEAN CORPUSCULAR HEMOGLOBIN 28.8 pg (27.0-33.0); MEAN CORPUSCULAR HGB CONC 31.9 g/dl (32.0-36.5); MEAN CORPUSCULAR VOLUME 90.2 fl (80.0-96.0); PLATELET COUNT, AUTOMATED 314 10^3/uL (150-450); WHITE BLOOD COUNT 9.4 10^3/uL (4.0-10.0)
[2022-06-10 15:03] LABS: GC DNA AMPLIFICATION NEGATIVE (NEGATIVE)
== END ==
LOC: M PLALAB 10:43
PROVIDERS: ATTEND Obstetrics & Gynecology
DX: Z34.92 Encounter for supervision of normal pregnancy, unspecified, second trimester (principal)

== ENCOUNTER → 2022-07-25 | Outpatient (CLI) | payer OTHER ==
[~2022-07-25] MED LIST changes: +LIDO15SO PO; -LIDO15SO4 PO
[2022-07-25 14:22] LABS: HEMATOCRIT 38.5 % (36.0-47.0); HEMOGLOBIN 12.1 g/dl (12.0-15.5); MEAN CORPUSCULAR HEMOGLOBIN 27.9 pg (27.0-33.0); MEAN CORPUSCULAR HGB CONC 31.4 g/dl (32.0-36.5); MEAN CORPUSCULAR VOLUME 88.7 fl (80.0-96.0); PLATELET COUNT, AUTOMATED 299 10^3/uL (150-450); RED BLOOD COUNT 4.34 10^6/uL (4.00-5.40); WHITE BLOOD COUNT 12.6 10^3/uL (4.0-10.0)
[2022-07-25 14:51] LABS: URIC ACID 4.6 MG/DL (3.1-7.8)
[2022-07-25 14:52] LABS: TOTAL PROTEIN,RANDOM URINE 16.5 MG/DL (0.0-14.0)
[2022-07-25 14:53] LABS: LDH LACTATE DEHYDROGENASE 159 U/L (120-246)
[2022-07-25 14:54] LABS: ALT/SGPT 12 U/L (7.0-40); AST/SGOT 10 U/L (<34); BILIRUBIN,TOTAL 0.3 MG/DL (0.3-1.2); CREATININE FOR GFR 0.59 MG/DL (0.55-1.30); GLOMERULAR FILTRATION RATE > 60.0 (>60)
[2022-07-25 14:57] LABS: CREATININE,RANDOM URINE 130.8 MG/DL
== END ==
LOC: M PLALAB 11:52
PROVIDERS: ATTEND Obstetrics & Gynecology
DX: O16.9 Unspecified maternal hypertension, unspecified trimester (principal); Z3A.00 Weeks of gestation of pregnancy not specified

== ENCOUNTER → 2022-08-08 | Outpatient (REF) | payer OTHER | LOC: M PLALAB 15:40 | PROVIDERS: ATTEND Obstetrics & Gynecology | DX: Z36.85 Encounter for antenatal screening for Streptococcus B (principal) ==

== ENCOUNTER 2022-08-20 14:06 | Inpatient (IN) | payer OTHER ==
[~2022-08-20] VITALS: Ht 167.6 cm; Wt 151.0 kg
[2022-08-20] MEDS ORDERED: HOME MED LIST COMPLETE! XX SCH (14:20)
[2022-08-20 14:25] VITALS: BP 133/67
[2022-08-20 15:10] LABS: HEMATOCRIT 35.4 % (36.0-47.0); HEMOGLOBIN 11.6 g/dl (12.0-15.5); MEAN CORPUSCULAR HEMOGLOBIN 27.6 pg (27.0-33.0); MEAN CORPUSCULAR HGB CONC 32.8 g/dl (32.0-36.5); MEAN CORPUSCULAR VOLUME 84.3 fl (80.0-96.0); PLATELET COUNT, AUTOMATED 309 10^3/uL (150-450); WHITE BLOOD COUNT 9.8 10^3/uL (4.0-10.0)
[2022-08-20] MEDS ORDERED: OXYTOCIN DRIP 30 UNITS in IV 1 EA IV PRN (15:40)
[2022-08-20] MEDS ORDERED: LIDOCAINE 1% MDV 20ML VIAL INFIL PRN (15:40)
[2022-08-20] MEDS: miSOPROStol 50MCG 1/2 TABLET SL SCH ×2 (15:48→20:12)
[2022-08-20 15:49] VITALS: BP 129/73
[2022-08-20] MEDS ORDERED: CALCIUM CARBONATE 500 MG CHEW U/D PO PRN (15:55)
[2022-08-20 18:01] VITALS: BP 137/75
[2022-08-20 20:12] VITALS: BP 128/66
[2022-08-20 21:16] VITALS: BP 138/66
[2022-08-21] VITALS (9 sets, daily range): BP systolic 105–135; BP diastolic 57–92
[2022-08-21] MEDS ORDERED: LR 1,000 ML IV SCH (00:55)
[2022-08-21] MEDS ORDERED: OXYTOCIN DRIP 30 UNITS in IV 1 EA IV SCH (00:55)
[2022-08-21] MEDS ORDERED: ONDANSETRON 4MG 2ML VIAL IV PRN (05:40)
[2022-08-21] MEDS ORDERED: ePHEDrine SULFATE 25 MG/5 ML(5MG/ML) SYRINGE IVP PRN (05:40)
[2022-08-21] MEDS ORDERED: NALOXONE INJ 0.4MG/1ML VIAL IV PRN (05:40)
[2022-08-21] MEDS ORDERED: FENTANYL/ROPIVACAINE/NACL BAG 100 ML EPIDURAL SCH (05:40)
[2022-08-21] MEDS ORDERED: diphenhydrAMINE 50MG/ML VIAL IV PRN (05:40)
[2022-08-21] MEDS ORDERED: LR 500 ML IV PRN (05:40)
[2022-08-21] MEDS ORDERED: EPIDURAL/PCA KEYS XX PRN (05:40)
[2022-08-21] MEDS ORDERED: DOCUSATE SODIUM 100MG CAPSULE PO PRN (06:20)
[2022-08-21] MEDS ORDERED: ACETAMINOPHEN 500 MG TAB PO PRN (06:20)
[2022-08-21] MEDS ORDERED: METHYLERGONOVINE MALEATE 0.2 MG TAB PO PRN (06:20)
[2022-08-21] MEDS ORDERED: IBUPROFEN 600MG TAB PO PRN (06:20)
[2022-08-21] MEDS ORDERED: IBUPROFEN 800 MG TAB PO PRN (06:20)
[2022-08-21] MEDS ORDERED: RHOGAM 300MCG (1500IU) INJ IM SCH (06:20)
[2022-08-21] MEDS ORDERED: ACETAMINOPHEN TAB 650MG DOSE (2X325MG) PO PRN (06:20)
[2022-08-21] MEDS ORDERED: DIBUCAINE 1% OINTMENT 30GM TOP PRN (06:20)
[2022-08-21] MEDS: PRENATAL VITAMINS CHEWABLE TABLET PO SCH (08:09)
[2022-08-22 06:12] VITALS: BP 138/77
[2022-08-22] MEDS: PRENATAL VITAMINS CHEWABLE TABLET PO SCH (08:00)
[2022-08-22] MEDS ORDERED: IBUP80TA PO (12:05)
[2022-08-22] MEDS ORDERED: ACET-683 PO (12:05)
[2022-08-22] MEDS ORDERED: MEASLES,MUMPS,RUBELLA VACCINE INJ (MMR-II) SC.IMMUN ONE (17:50)
== END 2022-08-22 18:00 | disposition home or self-care (01) | DRG 560 ==
LOC: M LDI 14:06 → M OBS 08-21 08:35
PROVIDERS: ADMIT Specialist; ATTEND Specialist
PROC: 3E033VJ Introduction of Other Hormone into Peripheral Vein, Percutaneous Approach (ICD-10-PCS; 2022-08-20)
PROC: 3E0DXGC Introduction of Other Therapeutic Substance into Mouth and Pharynx, External Approach (ICD-10-PCS; 2022-08-20)
PROC: 10E0XZZ Delivery of Products of Conception, External Approach (ICD-10-PCS; principal; 2022-08-21)
DX: O13.4 Gestational [pregnancy-induced] hypertension without significant proteinuria, complicating childbirth (principal); O69.82X0 Labor and delivery complicated by other cord entanglement, without compression, not applicable or unspecified; Z37.0 Single live birth; Z3A.37 37 weeks gestation of pregnancy

== ENCOUNTER → 2023-04-02 | Outpatient (REF) | payer OTHER ==
[~2023-04-02] MED LIST changes: +ACET-683 PO; +CEFD1CAP9 PO; -CEFD300C41 PO; -HM S0.65 NARES; +IBUP80TA PO; +SALI0.6531 NARES
[2023-04-02 18:31] LABS: URINE PREG TEST NEGATIVE (NEGATIVE)
[2023-04-02 18:38] LABS: AMORPHOUS SEDIMENT LARGE (NEGATIVE); APPEARANCE, URINE TURBID (CLEAR); BACTERIA, URINE AUTO NEGATIVE (NEGATIVE); BILIRUBIN, URINE AUTO NEGATIVE (NEGATIVE); BLOOD, URINE BLOOD NEGATIVE (NEGATIVE); CALCIUM OXALATE CRYSTALS SMALL; COLOR, URINE YELLOW (YELLOW); GLUCOSE, URINE (UA) AUTO NEGATIVE (NEGATIVE); KETONE, URINE AUTO NEGATIVE (NEGATIVE); LEUKOCYTE ESTERASE, URINE AUTO 2+ (NEGATIVE); MUCUS, URINE SMALL (NEGATIVE); NITRITE, URINE AUTO NEGATIVE (NEGATIVE); PROTEIN, URINE AUTO 1+ mg/dL (NEGATIVE); RBC, URINE AUTO 2 /HPF (0-3); SPECIFIC GRAVITY URINE AUTO 1.034 (1.002-1.035); SQUAMOUS EPITHELIAL CELL UR AU 9 /HPF (0-6); WBC, URINE AUTO TNTC /HPF (0-3)
== END ==
LOC: M LAB REF 17:58
PROVIDERS: ATTEND Physician Assistant Medical
DX: N39.0 Urinary tract infection, site not specified (principal)

== ENCOUNTER → 2023-10-30 | Outpatient (REF) | payer OTHER ==
[~2023-10-30] MED LIST changes: -LIDO15SO PO; +LIDO15SO8 PO
== END ==
LOC: M PLALAB 10:33
PROVIDERS: ATTEND Obstetrics & Gynecology
DX: Z34.81 Encounter for supervision of other normal pregnancy, first trimester (principal)

== ENCOUNTER → 2023-11-29 | Outpatient (CLI) | payer OTHER ==
[2023-11-29 15:20] LABS: HEMATOCRIT 38.1 % (36.0-47.0); HEMOGLOBIN 12.5 g/dl (12.0-15.5); MEAN CORPUSCULAR HEMOGLOBIN 29.4 pg (27.0-33.0); MEAN CORPUSCULAR HGB CONC 32.8 g/dl (32.0-36.5); MEAN CORPUSCULAR VOLUME 89.6 fl (80.0-96.0); PLATELET COUNT, AUTOMATED 306 10^3/uL (150-450); RED BLOOD COUNT 4.25 10^6/uL (4.00-5.40); WHITE BLOOD COUNT 7.4 10^3/uL (4.0-10.0)
[2023-11-29 17:08] LABS: GC DNA AMPLIFICATION NEGATIVE (NEGATIVE)
== END ==
LOC: M PLALAB 12:04
PROVIDERS: ATTEND Obstetrics & Gynecology
DX: Z34.81 Encounter for supervision of other normal pregnancy, first trimester (principal); Z3A.00 Weeks of gestation of pregnancy not specified

== ENCOUNTER → 2023-12-27 | Outpatient (CLI) | payer OTHER | LOC: M PLALAB 09:10 | PROVIDERS: ATTEND Obstetrics & Gynecology | DX: Z13.79 Encounter for other screening for genetic and chromosomal anomalies (principal) ==

== ENCOUNTER → 2023-12-27 | Outpatient (CLI) | payer OTHER ==
[2023-12-27 14:25] LABS: HIV 1&2 SCREEN NEGATIVE (NEGATIVE)
[2023-12-27 14:33] LABS: HEPATITIS C VIRUS ABY INDEX 0.09 INDEX (<0.8)
== END ==
LOC: M PLALAB 09:07
PROVIDERS: ATTEND Obstetrics & Gynecology
DX: Z34.81 Encounter for supervision of other normal pregnancy, first trimester (principal)

== ENCOUNTER → 2024-01-26 | Outpatient (CLI) | payer OTHER | LOC: M RAD 14:14 | PROVIDERS: ATTEND Obstetrics & Gynecology | DX: Z34.92 Encounter for supervision of normal pregnancy, unspecified, second trimester (principal) ==

== ENCOUNTER → 2024-02-15 | Outpatient (REF) | payer OTHER | LOC: M LAB REF 12:14 | PROVIDERS: ATTEND Physician Assistant | DX: B34.9 Viral infection, unspecified (principal) ==

== ENCOUNTER → 2024-03-14 | Outpatient (CLI) | payer OTHER ==
[2024-03-14 16:09] LABS: GLUCOSE CHALLENGE TEST 1 HOUR 94 MG/DL (LESS THAN 140); HEMATOCRIT 36.9 % (36.0-47.0); HEMOGLOBIN 11.8 g/dl (12.0-15.5); MEAN CORPUSCULAR HEMOGLOBIN 29.3 pg (27.0-33.0); MEAN CORPUSCULAR VOLUME 91.6 fl (80.0-96.0); PLATELET COUNT, AUTOMATED 272 10^3/uL (150-450); RED BLOOD COUNT 4.03 10^6/uL (4.00-5.40); WHITE BLOOD COUNT 8.5 10^3/uL (4.0-10.0)
[2024-03-14 16:45] LABS: HIV 1&2 SCREEN NEGATIVE (NEGATIVE)
[2024-03-14 16:52] LABS: HEPATITIS C VIRUS ABY INDEX 0.05 INDEX (<0.8)
[2024-03-14 18:22] LABS: GC DNA AMPLIFICATION NEGATIVE (NEGATIVE)
== END ==
LOC: M PLALAB 10:47
PROVIDERS: ATTEND Nurse Practitioner Family
DX: Z34.83 Encounter for supervision of other normal pregnancy, third trimester (principal)

== ENCOUNTER → 2024-04-03 | Outpatient (REF) | payer OTHER | LOC: M LAB REF 21:56 | PROVIDERS: ATTEND Physician Assistant | DX: J02.9 Acute pharyngitis, unspecified (principal) ==

== ENCOUNTER → 2024-04-30 | Outpatient (REF) | payer OTHER | LOC: M WUC 20:22 | PROVIDERS: ATTEND Student in an Organized Health Care Education/Training Program | DX: J06.9 Acute upper respiratory infection, unspecified (principal) ==

== ENCOUNTER 2024-05-01 13:24 | Emergency (ER) | payer OTHER ==
[~2024-05-01] VITALS: Ht 167.6 cm; Wt 114.3 kg
[2024-05-01 13:26] VITALS: TEMP 98.1
[2024-05-01 17:08] VITALS: BP 131/82; O2SAT 99
== END 2024-05-01 17:16 | disposition home or self-care (01) ==
LOC: M ED 13:24
DX: O99.613 Diseases of the digestive system complicating pregnancy, third trimester (principal); K42.9 Umbilical hernia without obstruction or gangrene; Z3A.35 35 weeks gestation of pregnancy; Z79.1 Long term (current) use of non-steroidal anti-inflammatories (NSAID); Z79.899 Other long term (current) drug therapy

== ENCOUNTER 2024-05-29 07:51 | Inpatient (IN) | payer OTHER ==
[~2024-05-29] VITALS: Ht 167.6 cm; Wt 118.7 kg
[2024-05-29] VITALS (22 sets, daily range): BP systolic 115–144; BP diastolic 60–86; O2SAT 98
[2024-05-29] MEDS ORDERED: TUMS500C PO (08:18)
[2024-05-29] MEDS ORDERED: HOME MED LIST COMPLETE! XX SCH (08:20)
[2024-05-29] MEDS ORDERED: PENICILLIN G POTASSIUM 5 MU IV 5 MU in DEXTROSE 5% (D5W) MINI-BAG PLU 100 ML IV STA (09:03)
[2024-05-29] MEDS ORDERED: METHYLERGONOVINE MALEATE 0.2MG/ML 1ML VIAL IM PRN (09:05)
[2024-05-29] MEDS ORDERED: OXYTOCIN DRIP 30 UNITS in IV 1 EA IV PRN (09:05)
[2024-05-29] MEDS ORDERED: LIDOCAINE 1% MDV 20ML VIAL INFIL PRN (09:05)
[2024-05-29] MEDS ORDERED: CARBOPROST TROMETHAMINE 250 MCG/ML AMP IM PRN (09:05)
[2024-05-29] MEDS: LR 1,000 ML IV SCH ×2 (09:05→14:10)
[2024-05-29] MEDS ORDERED: OXYTOCIN INJ 10UNITS/ML 1ML VIAL IM PRN (09:05)
[2024-05-29 09:15] LABS: HEMATOCRIT 36.4 % (36.0-47.0); HEMOGLOBIN 11.9 g/dl (12.0-15.5); MEAN CORPUSCULAR HEMOGLOBIN 28.5 pg (27.0-33.0); MEAN CORPUSCULAR HGB CONC 32.7 g/dl (32.0-36.5); MEAN CORPUSCULAR VOLUME 87.1 fl (80.0-96.0); PLATELET COUNT, AUTOMATED 276 10^3/uL (150-450); RED BLOOD COUNT 4.18 10^6/uL (4.00-5.40)
[2024-05-29] MEDS: miSOPROStol 50MCG 1/2 TABLET PO SCH (09:45)
[2024-05-29 10:07] LABS: HIV 1&2 SCREEN NEGATIVE (NEGATIVE)
[2024-05-29] MEDS ORDERED: PEN G POT 3,000,000 UNIT/50 ML 3,000,000 UNIT in IV 1 EA IV SCH ×2 (13:05→23:00)
[2024-05-29] MEDS: OXYTOCIN DRIP 30 UNITS in IV 1 EA IV SCH (14:10)
[2024-05-29] MEDS: LACTATED RINGER'S 1000 ML IV STA (16:15)
[2024-05-29] MEDS ORDERED: NALOXONE INJ 0.4MG/1ML VIAL IV PRN (17:20)
[2024-05-29] MEDS ORDERED: EPIDURAL/PCA KEYS XX PRN (17:20)
[2024-05-29] MEDS ORDERED: ONDANSETRON 4MG 2ML VIAL IV PRN (17:20)
[2024-05-29] MEDS ORDERED: LR 500 ML IV PRN (17:20)
[2024-05-29] MEDS ORDERED: diphenhydrAMINE 50MG/ML VIAL IV PRN (17:20)
[2024-05-29] MEDS: FENTANYL/ROPIVACAINE/NACL BAG 100 ML EPIDURAL SCH (17:50)
[2024-05-29 18:18] LABS: HEPATITIS C VIRUS ABY INDEX 0.04 INDEX (<0.8)
[2024-05-29] MEDS: PENICILLIN G POTASSIUM 5 MU IV 5 MU in DEXTROSE 5% (D5W) MINI-BAG PLU 100 ML IV STA (18:39)
[2024-05-29] MEDS ORDERED: **PENDING PCN ENTRY XX SCH (21:00)
[2024-05-29] MEDS: OXYTOCIN DRIP 30 UNITS in IV 1 EA IV PRN (21:43)
[2024-05-29] MEDS: TRANEXAMIC ACID INJection 1,000 MG in NS 100 ML IV PRN (21:43)
[2024-05-29] MEDS ORDERED: ACETAMINOPHEN 325 MG TAB PO PRN (21:50)
[2024-05-29] MEDS ORDERED: RHOGAM 300MCG (1500IU) INJ IM SCH (21:50)
[2024-05-29] MEDS ORDERED: DOCUSATE SODIUM 100MG CAPSULE PO PRN (21:50)
[2024-05-29] MEDS ORDERED: IBUPROFEN 600MG TAB PO PRN (21:50)
[2024-05-29] MEDS ORDERED: METHYLERGONOVINE MALEATE 0.2 MG TAB PO PRN (21:50)
[2024-05-30 06:00] VITALS: BP 110/60; O2SAT 97
[2024-05-30] MEDS: DIBUCAINE 1% OINTMENT 30GM TOP PRN (08:20)
[2024-05-30] MEDS: ACETAMINOPHEN 500 MG TAB PO PRN (08:20)
[2024-05-30] MEDS: PRENATAL VITAMINS CHEWABLE TABLET PO SCH (08:23)
[2024-05-30 18:00] VITALS: BP 105/55; O2SAT 99
[2024-05-31 05:57] VITALS: BP 125/83; O2SAT 100
[2024-05-31] MEDS: IBUPROFEN 800 MG TAB PO PRN (06:05)
[2024-05-31] MEDS ORDERED: MEASLES,MUMPS,RUBELLA VACCINE INJ (MMR-II) SC.IMMUN ONE (09:00)
== END 2024-05-31 11:45 | disposition home or self-care (01) | DRG 560 ==
LOC: EEVIPCON 07:51 → M LDI 07:51 → M OBS 23:45
PROVIDERS: ADMIT Advanced Practice Midwife; ATTEND Advanced Practice Midwife
PROC: 10E0XZZ Delivery of Products of Conception, External Approach (ICD-10-PCS; principal; 2024-05-29)
PROC: 3E0P7GC Introduction of Other Therapeutic Substance into Female Reproductive, Via Natural or Artificial Opening (ICD-10-PCS; 2024-05-29)
PROC: 3E033VJ Introduction of Other Hormone into Peripheral Vein, Percutaneous Approach (ICD-10-PCS; 2024-05-29)
PROC: 10907ZC Drainage of Amniotic Fluid, Therapeutic from Products of Conception, Via Natural or Artificial Opening (ICD-10-PCS; 2024-05-29)
DX: O99.824 Streptococcus B carrier state complicating childbirth (principal); E66.9 Obesity, unspecified; F32.A Depression, unspecified; O99.344 Other mental disorders complicating childbirth; Z37.0 Single live birth; Z3A.39 39 weeks gestation of pregnancy; K42.9 Umbilical hernia without obstruction or gangrene; M06.9 Rheumatoid arthritis, unspecified; O26.899 Other specified pregnancy related conditions, unspecified trimester; O99.214 Obesity complicating childbirth; O99.62 Diseases of the digestive system complicating childbirth

== ENCOUNTER → 2024-07-11 | Outpatient (CLI) | payer OTHER ==
[~2024-07-11] MED LIST changes: +TUMS500C PO; +ZOLO100T PO
== END ==
LOC: M WUC 14:00
PROVIDERS: ATTEND Nurse Practitioner Family
DX: M25.462 Effusion, left knee (principal)

== ENCOUNTER 2024-07-25 07:20 | Day surgery (SDC) | payer OTHER ==
[~2024-07-25] VITALS: Ht 167.6 cm; Wt 115.9 kg
[2024-07-25] MEDS ORDERED: LR 1,000 ML IV SCH (07:50)
[2024-07-25] MEDS ORDERED: LIDOCAINE 2% 100MG/5ML SDV (FOR ANES.) As Ordered ONE (08:08)
[2024-07-25] MEDS ORDERED: propofoL 200 MG/20 ML VIAL As Ordered ONE (08:08)
[2024-07-25] MEDS ORDERED: ROCURONIUM BROMIDE 50MG/5ML VIAL As Ordered ONE (08:08)
[2024-07-25] MEDS ORDERED: MIDAZOLAM INJ 2MG/2ML VIAL As Ordered ONE (08:08)
[2024-07-25] MEDS ORDERED: fentaNYL 100 MCG/2 ML INJECTION As Ordered ONE (08:08)
[2024-07-25] MEDS ORDERED: ONDANSETRON 4MG 2ML VIAL As Ordered ONE (08:08)
[2024-07-25] MEDS ORDERED: ACETAMINOPHEN 1000MG/100ML IV BAG As Ordered ONE (08:12)
[2024-07-25] MEDS ORDERED: dexmedeTOMIDine (4MCG/ML)200MCG/50ML BTL (PRECEDEX) As Ordered ONE (08:13)
[2024-07-25] MEDS: ceFAZolin SOD 2 GM IV ONCE IV ONE (09:49)
[2024-07-25] MEDS ORDERED: SUGAMMADEX SODIUM 500 MG/5 ML VIAL (BRIDION) As Ordered ONE (10:04)
[2024-07-25] MEDS ORDERED: KETOROLAC 30 MG/ML 1ML VIAL As Ordered ONE (10:04)
[2024-07-25] MEDS ORDERED: HYDROmorphone HCL 2MG/ML 1ML VIAL As Ordered ONE (10:28)
[2024-07-25] MEDS ORDERED: MORPHINE 2 MG/ML 1ML VIAL IV PRN (11:10)
[2024-07-25] MEDS ORDERED: NORCO, ANEXSIA 5/325MG TABLET (HYDROcodone/ACETAMINOPHEN) PO PRN (11:30)
[2024-07-25] MEDS: fentaNYL 100 MCG/2 ML INJECTION IV PRN (11:57)
[2024-07-25] MEDS: ONDANSETRON 4MG 2ML VIAL IV PRN (12:00)
[2024-07-25] MEDS: oxyCODONE 5MG TAB PO PRN (12:20)
[2024-07-25 12:45] VITALS: BP 121/60; TEMP 97.6; O2SAT 99
== END 2024-07-25 13:06 | disposition home or self-care (01) ==
LOC: M SDC 07:20
PROVIDERS: ATTEND Surgery
DX: K42.0 Umbilical hernia with obstruction, without gangrene (principal); F41.9 Anxiety disorder, unspecified; F32.A Depression, unspecified; F17.210 Nicotine dependence, cigarettes, uncomplicated; Z79.899 Other long term (current) drug therapy
CPT/HCPCS: 49594; 81025; C1781; J0131; J0665; J0690; J1100; J1171; J1885; J2250; J2405; J3010; S2900